=== PATIENT | male | born 1965 | race Caucasian/White ===

== ENCOUNTER 2017-07-26 05:42 | Day surgery (SDC) | payer MEDICARE, MEDICAID ==
[2017-07-25 11:50] VITALS: BMI 45.4
[2017-07-26 06:22] LABS: #Basophils 0.1 thou/uL (0.0-0.2); #Eosinphils 0.1 thou/uL (0.0-0.7); #Lymphocytes 3.1 thou/uL (1.20-3.40); #Monocytes 0.8 thou/uL (0.11-0.59); #Neutrophils 4.2 thou/uL (1.40-6.50); %Basophils 0.7 % (0.0-1.0); %Eosinophils 0.8 % (0.0-10.0); %Lymphocytes 37.5 % (21.0-51.0); Hemoglobin 16.4 g/dL (14.0-18.0); Mean Corpuscular HGB CONC 33.3 g/dL (32.0-36.0); Mean Corpuscular Hemoglobin 29.6 pg (27.0-31.0); Mean Corpuscular Volume 88.9 fl (80.0-94.0); Mean Platelet Volume 6.6 fL (7.4-10.4); Platelet Count 387 thou/uL (130-400); RBC Distribution Width 12.9 % (11.5-14.5); Red Blood Cell (RBC) Count 5.55 mill/uL (4.70-6.10); White Blood Cell (WBC) Count 8.1 thou/uL (4.8-10.8)
[2017-07-26] MEDS ORDERED: Bupivacaine 0.25% HCL 30 ML VIAL ONE (06:31)
[2017-07-26 06:36] LABS: ALT (SGPT) 32 U/L (8-55); AST (SGOT) 34 U/L (5-34); Albumin 4.5 g/dL (3.5-5.0); Alkaline Phosphatase 73 U/L (40-150); Anion Gap 12 mmol/L (10-20); BUN (Urea Nitrogen) 15 mg/dL (8.9-20.6); Bilirubin, Total 0.8 mg/dL (0.2-1.2); Calc. Creatinine Clearance 177 mL/min (70-130); Carbon Dioxide 29 mmol/L (22-29); Chloride 102 mmol/L (98-107); Estimated GFR-MDRD 82; Globulin 3.4 g/dL (2.4-3.5); Glucose 100 mg/dL (70-105); Potassium 4.2 mmol/L (3.5-5.1); Protein, Total 7.9 g/dL (6.0-8.3); Sodium 139 mmol/L (136-145)
[2017-07-26] MEDS ORDERED: Bupivacaine/Epinephrine 0.25% 30 ML VIAL ONE (06:41)
[2017-07-26] MEDS ORDERED: CEFAZOLIN/Water 2 GM/20 ML SYRINGE ONE (06:43)
[2017-07-26] MEDS ORDERED: Ketorolac Tromethamine 30 MG/ML VIAL ONE (06:43)
[2017-07-26] MEDS ORDERED: Fentanyl 250 MCG/5 ML VIAL ONE (07:05)
[2017-07-26] MEDS ORDERED: Ondansetron HCl/PF 4 MG/2 ML Vial ONE ×2 (08:13→12:52)
[2017-07-26] MEDS ORDERED: Fentanyl 100 MCG/2 ML VIAL ONE (08:38)
[2017-07-26] MEDS ORDERED: Promethazine HCl 25 MG/ML VIAL ONE (09:14)
--- NOTE | 2017-07-26 10:27 | OP ---
DATE OF PROCEDURE: 07/26/2017 PREOPERATIVE DIAGNOSES: Symptomatic cholelithiasis, morbid obesity. POSTOPERATIVE DIAGNOSES: Symptomatic cholelithiasis, morbid obesity. PROCEDURE: Laparoscopic cholecystectomy. SURGEON: Yariel Valles M.D. ANESTHESIA: General endotracheal. INDICATIONS: The patient is a 51-year-old morbidly obese white male. He has got a history of a righ t lung lobectomy. He presents at this time with symptoms referable to gallbladder and ultrasound pro cherelle cholelithiasis. I have recommended laparoscopic cholecystectomy. I insisted upon a preoperative weight loss due to my concern regarding the difficulty posed by significantly fatty liver. Accordin gly, the patient has put himself on a healthy diet and lost 17 pounds in the past 2 weeks. PROCEDURE IN DETAIL: Informed consent was obtained. The patient was taken to the operating room whe re general endotracheal anesthesia was obtained with the patient in the supine position. The abdomen was prepped with Betadine and draped in the usual sterile fashion. Quarter percent Marcaine with ep inephrine was infiltrated below the umbilicus and a 10 mm infraumbilical incision was created. A Yolanda ess needle was passed through this incision into the peritoneal cavity. A pneumoperitoneum was estab lished using carbon dioxide up to a pressure of 15 mmHg. Local anesthetic was infiltrated and three additional 5 mm right upper quadrant incisions were created. Through the mid incision, a 5 mm port w as passed into the peritoneal cavity. The camera was passed through this port and under direct visio n, an 11 port is passed through the infraumbilical incision. The camera was replaced through this port, and under dir ect vision, two additional 5 mm ports were passed through the incisions already created. The gallbladder was grasped and retracted in a cephalad direction. Minimal adhesions were bluntly st ripped away from the apex of the gallbladder, and the apex was retracted laterally and inferiorly. C areful dissection was carried out to the apex of the gallbladder to identify the cystic duct and cyst ic artery. These were each carefully dissected circumferentially. The duct was of normal caliber. Both the duct and the artery were divided between clips leaving two on the side to remain within the abdomen. The gallbladder was then dissected out of the gallbladder fossa using electrocautery and re moved through the infraumbilical port site. The fascia was closed with 0 Vicryl suture and a GraNee needle. The right upper quadrant was inspected and irrigated. All irrigant was aspirated. All port s and instruments were removed under direct vision. Pneumoperitoneum was carefully evacuated. Addit ional local anesthetic was infiltrated into each port site. The skin edges were approximated with 4- 0 Monocryl subcuticular sutures, and Dermabond was placed externally. There were no complications. The patient tolerated the procedure well and was taken to the Recovery Room in stable condition. FINDINGS: Due to the patient's obesity I made a supraumbilical rather than infraumbilical incision f or gallbladder extraction. The liver itself did not look particularly fatty. The surgery was perfor med without difficulty. There were no significant acute inflammatory changes to the gallbladder and the duct was without dilatation. Liver function tests were normal today. A cholangiogram was not ob tained. Blood loss was essentially none. The patient tolerated the procedure well and was taken to recovery room in stable condition.
[2017-07-26] MEDS ORDERED: HYDROcodone/Acetaminophen 5/325 mg Tablet ONE (11:13)
[2017-07-26] MEDS ORDERED: Succinylcholine Chloride 20 MG/ML 10 ml SYRINGE FS ONE (12:52)
[2017-07-26] MEDS ORDERED: Glycopyrrolate 0.2 MG/ML 5 ML SYRINGE ONE (12:52)
[2017-07-26] MEDS ORDERED: Metoprolol Tartrate 5 MG/5 ML VIAL ONE (12:52)
[2017-07-26] MEDS ORDERED: Dexamethasone 20 MG/5 ML VIAL ONE (12:52)
[2017-07-26] MEDS ORDERED: PROPOFOL 200 MG/20 ML VIAL ONE (12:52)
[2017-07-26] MEDS ORDERED: Lidocaine 1% PF 5 ML VIAL ONE (12:52)
--- NOTE | 2017-07-27 07:20 | EKG ---
Test Reason : PREOP Blood Pressure : / mmHG Vent. Rate : 096 BPM Atrial Rate : 115 BPM P-R Int : 000 ms QRS Dur : 110 ms QT Int : 348 ms P-R-T Axes : 000 024 051 degrees QTc Int : 439 ms Atrial fibrillation Abnormal ECG When compared with ECG of 02-MAR-2001 16:29, Atrial fibrillation has replaced Sinus rhythm Criteria for Septal infarct are no longer Present Confirmed by DR. Nicole WONG ([id number]) on 07/27/2017 7:20:29 AM Referred By: MARY JANE Confirmed By:DR. Nicole WONG
== END 2017-07-26 11:25 | disposition home or self-care (01) ==
LOC: SDC 05:42
PROVIDERS: ATTEND Specialist
PROC: 0FT44ZZ Resection of Gallbladder, Percutaneous Endoscopic Approach (ICD-10-PCS; principal; 2017-07-26)
DX: K80.10 Calculus of gallbladder with chronic cholecystitis without obstruction (principal); E66.01 Morbid (severe) obesity due to excess calories; E11.9 Type 2 diabetes mellitus without complications; I10 Essential (primary) hypertension; R56.9 Unspecified convulsions; Z68.42 Body mass index [BMI] 45.0-49.9, adult; Z79.82 Long term (current) use of aspirin; Z79.899 Other long term (current) drug therapy; Z88.8 Allergy status to other drugs, medicaments and biological substances
CPT/HCPCS: 36415; 80053; 85025; 88304; 93005; 93010; 96374; 96375; J0131; J1100; J1885; J2001; J2405; J2550; J2704; J3010; S0020

== ENCOUNTER 2017-09-24 08:44 | Emergency (ER) | payer MEDICARE, MEDICAID ==
[2017-09-24] MEDS ORDERED: Ondansetron ODT 4 MG TAB ONE (09:03)
[2017-09-24 09:39] LABS: Anion Gap 11 mmol/L (10-20); BUN (Urea Nitrogen) 11 mg/dL (8.9-20.6); Calc. Creatinine Clearance 0 mL/min (70-130); Calcium 9.1 mg/dL (7.8-10.44); Carbon Dioxide 29 mmol/L (22-29); Chloride 101 mmol/L (98-107); Estimated GFR-MDRD Greater than 90; Glucose 96 mg/dL (70-105); Potassium 3.8 mmol/L (3.5-5.1); Sodium 137 mmol/L (136-145)
--- NOTE | 2017-09-24 09:45 | RAD ---
RIGHT TIBIA AND FIBULA 4 VIEWS: Date: 09/24/17 HISTORY: Fall with injury to right lower extremity. FINDINGS: No evidence of fracture. IMPRESSION: No acute osseous abnormality identified. POS: ARUN
== END 2017-09-24 11:11 | disposition home or self-care (01) ==
LOC: ERS 08:44
DX: M79.661 Pain in right lower leg (principal); E78.5 Hyperlipidemia, unspecified; I10 Essential (primary) hypertension; E11.9 Type 2 diabetes mellitus without complications; J44.9 Chronic obstructive pulmonary disease, unspecified; Z79.899 Other long term (current) drug therapy; Z79.84 Long term (current) use of oral hypoglycemic drugs
CPT/HCPCS: 36415; 80048; 96374; J2270; Q0162

== ENCOUNTER 2017-10-15 09:48 | Outpatient (CLI) | payer OTHER | END 2017-10-15 09:49 | disposition home or self-care (01) | LOC: DTY/OP 09:48 | PROVIDERS: ATTEND Specialist | DX: Z01.818 Encounter for other preprocedural examination (principal); E66.01 Morbid (severe) obesity due to excess calories | CPT/HCPCS: 97802 ==

== ENCOUNTER 2017-12-02 21:21 | Observation (INO) | payer MEDICARE, MEDICAID ==
[2017-12-02] MEDS ORDERED: Ketorolac Tromethamine 30 MG/ML VIAL ONE (21:42)
[2017-12-02] MEDS ORDERED: Nitroglycerin 2% Ointment 1 INCH/1 GM Packet ONE (21:46)
[2017-12-02 22:38] LABS: CKMB 1.9 ng/mL (0-6.6); Troponin I Less than 0.010 ng/mL (< 0.028)
[2017-12-02] MEDS ORDERED: Morphine ER 30 MG TAB PO PRN (22:57)
[2017-12-02] MEDS ORDERED: Furosemide 40 MG TAB PO PRN (22:57)
[2017-12-02] MEDS ORDERED: Ondansetron ODT 4 MG TAB PO PRN (23:00)
[2017-12-02] MEDS ORDERED: Acetaminophen 325 MG TAB PO PRN (23:00)
[2017-12-02] MEDS ORDERED: Bisacodyl 5 MG TAB PO PRN (23:00)
[2017-12-02] MEDS ORDERED: Fleet Enema 133 ML BOT PR PRN (23:00)
--- NOTE | 2017-12-03 00:11 | HP ---
CHIEF COMPLAINT: Chest pain. HISTORIAN: The patient is the historian. HISTORY OF PRESENT ILLNESS: The patient is a 52-year-old white male with past medical history of seizures, COPD, right pneumonectomy, hypertension, chronic atrial fibrillation, presented with chest pain which started at 2:00 p.m. the day of admission. Per the patient, he was watching a [employer] football game and the kids in the house were very loud and that things were very chaotic and he started having symptoms of chest pain which is located at the right upper chest. Per the patient, he has had a right pneumonectomy therefore his heart is shifted to the right, so he felt like there was a little bit of atrial fibrillation and no chest pain, but he was very concerned, so he wanted to go to the emergency room to be examined just to make sure that everything is okay. The patient described the chest pain as 7/10. Chest pain is localized right upper chest. Nothing seemed to be the chest pain better. Chest pain lasted for almost 5 hours. Currently, the patient states the chest pain is better after receiving pain medications. REVIEW OF SYSTEMS: Positive for chest pain, heart palpitation, otherwise as documented in the HPI. All other systems were reviewed and are negative. FAMILY HISTORY: Dad had heart attacks. The patient states that mom a year ago. PAST MEDICAL HISTORY: Refer to [facility]. PAST SURGICAL HISTORY: The patient had a right elbow surgery in 09/2012. The patient had a right pneumonectomy due to lung cancer. The patient has appendectomy and back surgery. PSYCHIATRIC HISTORY: The patient does not have any history. SOCIAL HISTORY: The patient drinks occasionally. The patient denies any illicit drug use. The patient stated that he is a former smoker and he quit when he was 34 years old. ALLERGIES: The patient is allergic to LATEX and is unconfirmed. CURRENT MEDICATIONS: Medications were obtained from patient's son. The patient takes flecainide 50 mg, diltiazem 180 mg, omeprazole 40 mg, Eliquis 5 mg , furosemide 40 mg, enalapril 5 mg, hydrochlorothiazide 25 mg, lovastatin 10 mg. PHYSICAL EXAMINATION: VITAL SIGNS: Blood pressure is 128/87, pulse 117, respiratory rate of 20, temperature is 97.9. The patient's pain at this time is 4/10. The patient is 98 on room air. GENERAL: The patient appears relaxed, lying in bed comfortably, does not appear to be in any distress. The patient is speaking in full sentences. HEENT: Pupils are equally round and reactive to light. Extraocular motors are intact. There is no scleral icterus. Trachea is midline. Mucous membranes are moist. NECK: No JVD, supple. RESPIRATORY: The patient did not have any lung sounds at the right lung; however, the patient do have good air intake. No wheezing, no rales, no rhonchi is appreciated in the left lung. CARDIOVASCULAR: The patient has a reproducible chest pain at the right upper chest. The patient's heart rate is irregularly irregular and tachycardic. ABDOMEN: Nondistended, positive bowel sounds in all quadrants. No palpable masses appreciated. No tenderness. The patient does not have any ecchymosis noted. BACK: The patient did have a scar located at the right lung, upper back. EXTREMITIES: Upper extremities and lower extremities: 5/5 upper extremity strength, 5/5 lower extremity strength. Good pulses bilaterally at the upper and lower extremities. NEUROLOGIC: Cranial nerves II-XII grossly intact. No focal neurologic deficits noted. SKIN: Warm, dry, and intact. The patient does have a scar located in the right upper back. PSYCHIATRIC: Normal affect, alert and oriented x3. Chest x-ray showed right lung atelectasis is unchanged. Pulmonary vasculature is now somewhat engorged. Other findings are stable. LABORATORY DATA: The patient's troponins is less than 0.010. CK-MB is 1.9. WBC 9.5, hemoglobin 15.1, hematocrit is 45%, platelets 348. Electrolytes: Sodium 137, potassium 3.7, chloride 103, carbon dioxide 25, anion gap of 13, BUN 11, creatinine 0.83, glucose 138. Lactic acid 1.1. ASSESSMENT AND PLAN: 1. This is a 52-year-old male being admitted for chest pain, rule out acute coronary syndrome. The patient's chest pain is atypical in nature. Currently, patient has received aspirin, nitroglycerin, and morphine. The patient is currently feeling better. We will continue to monitor the patient closely. We will get the rest of troponins. We will get overseamer and we will follow up with overseamer's recommendation regarding possible stress test. The patient stated that he recently actually had an echo done and he has been worked up extensively because the patient is planning to have bariatric surgery. The patient also stated that he is being scheduled to have ablation of his atrial fibrillation. At this time, we will just get Cardiology and we are basically going to continue patient on home medication of diltiazem to slow the rate. If patient rate goes above 110, we will then consider possibly doing diltiazem. 2. Atrial fibrillation with rapid ventricular response. The patient's current heart rate is in the 90s at bedside. We will continue the patient on diltiazem p.o. We will follow up with patient's heart rate. We will monitor closely. 3. Chronic obstructive pulmonary disease. Currently, the patient is not wheezing. The patient does not have any symptoms of chronic obstructive pulmonary disease exacerbation, so we will continue the patient on his home medication. 4. History of seizures, currently stable. We will monitor. 5. Hypertension. The patient's blood pressure is in the 150s. We will continue to watch patient's blood pressure. We will continue to watch patient closely. 6. Deep venous thrombosis and gastrointestinal prophylaxis. We will continue the patient on his home dose of Eliquis and gastrointestinal prophylaxis. We will give patient Pepcid. MTDD
[2017-12-03 00:34] VITALS: BMI 44.6
[2017-12-03 00:39] LABS: #Basophils 0.1 thou/uL (0.0-0.2); #Eosinphils 0.1 thou/uL (0.0-0.7); #Lymphocytes 4.1 thou/uL (1.20-3.40); #Monocytes 0.7 thou/uL (0.11-0.59); #Neutrophils 4.3 thou/uL (1.40-6.50); %Eosinophils 0.8 % (0.0-10.0); %Lymphocytes 44.4 % (21.0-51.0); %Monocytes 7.9 % (0.0-10.0); %Neutrophils 45.9 % (42.0-75.0); Hemoglobin 14.5 g/dL (14.0-18.0); Mean Corpuscular HGB CONC 33.6 g/dL (32.0-36.0); Mean Corpuscular Hemoglobin 29.7 pg (27.0-31.0); Mean Corpuscular Volume 88.2 fL (78.0-98.0); Mean Platelet Volume 6.3 fL (7.4-10.4); Platelet Count 298 thou/uL (130-400); RBC Distribution Width 12.8 % (11.5-14.5); White Blood Cell (WBC) Count 9.3 thou/uL (4.8-10.8)
[2017-12-03 01:06] LABS: Troponin I 0.019 ng/mL (< 0.028)
[2017-12-03 01:08] LABS: Anion Gap 11 mmol/L (10-20); BUN (Urea Nitrogen) 10 mg/dL (8.9-20.6); Calc. Creatinine Clearance 213 mL/min (70-130); Calcium 9.2 mg/dL (7.8-10.44); Carbon Dioxide 26 mmol/L (22-29); Chloride 104 mmol/L (98-107); Estimated GFR-MDRD Greater than 90; Glucose 93 mg/dL (70-105); Potassium 4.1 mmol/L (3.5-5.1); Sodium 137 mmol/L (136-145)
[2017-12-03] MEDS ORDERED: Insulin Regular 300 UNITS/3 ML VIAL SC PRN (01:43)
[2017-12-03] MEDS ORDERED: Dextrose 50% Abboject 50 ML SYRINGE SLOW IVP PRN (01:43)
[2017-12-03] MEDS ORDERED: HumaLOG 300 UNITS/3 ML VIAL SC PRN (01:43)
[2017-12-03] MEDS ORDERED: Dextrose 5% in Water 1,000 ML IV PRN (01:43)
[2017-12-03 05:33] LABS: Troponin I Less than 0.010 ng/mL (< 0.028)
[2017-12-03 08:00] VITALS: BP 125/79; TEMP 97.2
[2017-12-03] MEDS ORDERED: Hydrochlorothiazide 25 MG TAB PO SCH ×2 (09:00)
[2017-12-03] MEDS ORDERED: Apixaban 5 MG TAB PO SCH (09:00)
[2017-12-03] MEDS ORDERED: Flecainide 50 MG TAB PO SCH (09:00)
[2017-12-03] MEDS ORDERED: Aspirin 325 MG TAB PO SCH (09:00)
[2017-12-03] MEDS ORDERED: Rosuvastatin 10 MG TAB PO SCH (09:00)
--- NOTE | 2017-12-03 15:25 | DIS ---
SDATE OF ADMISSION: 12/02/2017 DATE OF DISCHARGE: 12/03/2017 PRIMARY CARE PHYSICIAN: [facility] call admission. DISCHARGE DISPOSITION: Home. PRIMARY DISCHARGE DIAGNOSIS: Chest pain, ruled out acute coronary syndrome. SECONDARY DISCHARGE DIAGNOSES: Seizure disorder; morbid obesity with BMI 44; hypertension; history of lung cancer; history of right pneumonectomy; dyslipidemia; diabetes type 2; chronic atrial fibrillation, chronic anticoagulation; obstructive sleep apnea, on CPAP. PRIMARY PROCEDURE/OPERATION: None. RADIOLOGICAL INVESTIGATION: None. SIGNIFICANT LABORATORY DATA: CBC: WBC 9.3, hemoglobin 14.5, platelets 298. Sodium 137, creatinine 0.78. Electrolytes normal. Cardiac enzymes negative x3. RADIOLOGIC INVESTIGATION: Chest x-ray was normal. DISCHARGE MEDICATIONS: The patient will continue all his previous medications. Eliquis 5 mg p.o. b.i.d., Cardizem-CD 180 mg p.o. daily, enalapril 5 mg p.o. daily, flecainide 50 mg p.o. b.i.d., Lasix 40 mg p.o. daily p.r.n., hydrochlorothiazide 25 mg p.o. daily, omeprazole 40 mg p.o. daily, Crestor 10 mg p.o. daily. CONTRAINDICATIONS: None. CODE STATUS: FULL CODE. INPATIENT CONSULTANTS: None. ALLERGIES: No known drug allergy. DISCHARGE PLAN: Post hospital, the patient will make followup appointment with primary care physician as well as primary shoe stock associate in [place]. HOSPITAL COURSE: This is a 52-year-old male, who was admitted by Dr. Arie Mariano. Please see his H and P for further details. The patient was initially evaluated at [facility] where he went for chest pain. His workup at [facility] was unremarkable. His EKG showed atrial fibrillation, which was chronic for patient. The patient was transferred to our hospital for rule out ACS. Patient had negative cardiac enzymes x3. He did not have any further chest pain. When we examined and took his history,his chest pain was consistent with musculoskeletal. His cardiac enzymes negative. Patient was not interested in getting cardiology consultation as well as he was not interested in going for stress test, rather he wanted to go home, and per his request, we discharged him home. He has already followup appointment with his own shoe stock associate and primary care physician in [place]. The patient is seen and examined at bedside today. All review of system reviewed with him and negative. His physical examination is completely normal. BRANDON
--- NOTE | 2017-12-15 13:16 | EKG ---
Test Reason : Blood Pressure : / mmHG Vent. Rate : 079 BPM Atrial Rate : 138 BPM P-R Int : 000 ms QRS Dur : 110 ms QT Int : 366 ms P-R-T Axes : 000 019 043 degrees QTc Int : 419 ms Atrial fibrillation Abnormal ECG Confirmed by ERVIN FLORES ([id number]), purchasing expeditor KAREN GARCIA ([id number]) on 12/15/2017 1:15:40 PM Referred By: Confirmed By:ERVIN FLORES
== END 2017-12-03 12:08 | disposition home or self-care (01) ==
LOC: ERS 21:21 → 2SW 22:24
PROVIDERS: ADMIT Internal Medicine; ATTEND Internal Medicine
DX: R07.2 Precordial pain (principal); J44.9 Chronic obstructive pulmonary disease, unspecified; I48.2 Chronic atrial fibrillation; E66.01 Morbid (severe) obesity due to excess calories; E11.9 Type 2 diabetes mellitus without complications; G47.33 Obstructive sleep apnea (adult) (pediatric); Z91.040 Latex allergy status; Z79.01 Long term (current) use of anticoagulants; Z79.899 Other long term (current) drug therapy; Z68.41 Body mass index [BMI] 40.0-44.9, adult
CPT/HCPCS: 80048; 82553; 82962; 84484 ×3; 85025; 93005; 94660; 96374; 99285; G0378 ×2; 36415; 36416; J1885

== ENCOUNTER 2017-12-14 10:30 | Inpatient (IN) | payer MEDICARE, MEDICAID ==
[2017-12-14 10:48] VITALS: BMI 44.2
[2017-12-20] MEDS ORDERED: cefOXitin 2 GM VIAL ONE (06:18)
[2017-12-20] MEDS ORDERED: Heparin 5,000 UNITS/ML VIAL ONE (06:19)
[2017-12-20] MEDS ORDERED: Scopolamine 1.5 mg/72 hour Patch ONE (06:19)
[2017-12-20] MEDS ORDERED: Sodium Chloride 0.9% 100 ML ONE (06:19)
[2017-12-20] MEDS ORDERED: Ketorolac Tromethamine 30 MG/ML VIAL ONE (06:19)
[2017-12-20] MEDS ORDERED: Fentanyl 250 MCG/5 ML VIAL ONE (06:27)
[2017-12-20] MEDS ORDERED: Midazolam HCl 2 mg/2 ml Vial ONE (06:27)
[2017-12-20] MEDS ORDERED: Bupivacaine/Epinephrine 0.25% 30 ML VIAL ONE ×2 (06:28→06:52)
[2017-12-20] MEDS ORDERED: Lidocaine 2% Jelly 5 ML TUBE ONE (06:28)
[2017-12-20] MEDS ORDERED: Promethazine HCl 25 MG/ML VIAL IM PRN ×2 (09:20→13:16)
[2017-12-20] MEDS ORDERED: Ondansetron HCl/PF 4 MG/2 ML Vial IVP PRN ×2 (09:20→13:16)
[2017-12-20] MEDS ORDERED: Promethazine HCl 25 MG/ML VIAL SLOW IVP PRN (09:20)
[2017-12-20] MEDS ORDERED: Fentanyl 100 MCG/2 ML VIAL ONE ×3 (09:53→11:17)
--- NOTE | 2017-12-20 11:39 | OP ---
DATE OF PROCEDURE: 12/20/2017 PREOPERATIVE DIAGNOSIS: Morbid obesity. POSTOPERATIVE DIAGNOSIS: Morbid obesity. PROCEDURE PERFORMED: Laparoscopic vertical sleeve gastrectomy using the ViSiGi device.. SURGEON: Yariel Valles M.D. ANESTHESIA: General endotracheal. INDICATIONS: The patient is a 52-year-old morbidly obese white male. He weighs approximately 285 po unds at the time of surgery. He has lost some weight preoperatively. He was taken to the operating room at this time for sleeve gastrectomy, having completed preoperative education and evaluation. DESCRIPTION OF OPERATION: Informed consent was obtained. The patient was taken to the operating shahla m where general endotracheal anesthesia obtained with the patient in supine position. Abdomen was pr epped with ChloraPrep and draped in sterile fashion. Local anesthetic was infiltrated and 5 mm supra umbilical incision was created through which Veress needle was passed to the peritoneal cavity and pn eumoperitoneum established using carbon dioxide up to a pressure of 15 mmHg. A 5 mm trocar port was passed through this same incision. Laparoscopic camera was passed through this port. Under direct v ision, 4 additional ports were placed including bilateral 5 mm subcostal ports, a 12 mm right paramed zack port and a 15 mm left paramedian port. A 5 mm epigastric incision was created through which Nathansen retractor was passed into the abdomina l cavity and used to retract the left lobe of the liver. The patient was placed into reverse [place] en[place] position. The ViSiGi device was advanced within the stomach and used to decompress this. The pylorus was ident ified and beginning 4 cm proximal to the pylorus, the omentum and vascular tissue along the greater c urvature was divided using the LigaSure in an ascending fashion up to the angle of His. All posterio r adhesions were mobilized. The short gastric vessels were carefully divided and then hemostasis was maintained using the LigaSure. Once this was completely mobilized, the ViSiGi was carefully positio giselle at the level of the pylorus and placed to suction, which was clearly defining the lesser curvatur e of the stomach. The gastrectomy was then performed using a series of fires of the [place] stapler using a green load followed by a gold load and a series of blue loads until completion of the gastrectomy. The ViSiGi a long the lesser curvature was used as a size 36 bougie to guide in the gastric division. Care was ta kumar to avoid narrowing the incisura or the gastroesophageal junction. The integrity of the staple line was then assessed by insufflating gas through the ViSiGi while irrig ating along the staple line. There was no evidence of an air leak. There was no evidence of bleedin g along the staple line. The resected stomach was then removed through the 15 mm port and the fascia was closed with 0 Vicryl suture using a GraNee needle. I then closed the 12 mm port also using the GraNee needle and 0 Vicryl suture. The Nathansen retractor was removed. All ports and instruments were removed under direct v ision. All irrigant was aspirated. Pneumoperitoneum was carefully evacuated. Quarter percent [place] ine with epinephrine was infiltrated into each port site. Skin edges approximated with 4-0 Monocryl subcuticular suture. Dermabond was placed externally. There were no complications. The patient marichuy erated the procedure well and was taken to recovery room in stable condition. FINDINGS: The patient did not have any evidence of a fatty liver. He did have copious fat along the greater curvature. The operation was performed uneventfully without any significant blood loss with no complications or injuries. Clips were placed along the staple line to ensure appropriate hemosta sis. The patient was in stable condition and taken to recovery room.
[2017-12-20] MEDS ORDERED: Ondansetron HCl/PF 4 MG/2 ML Vial ONE (13:01)
[2017-12-20] MEDS ORDERED: Glycopyrrolate 0.2 MG/ML 5 ML SYRINGE ONE (13:01)
[2017-12-20] MEDS ORDERED: Succinylcholine Chloride 20 MG/ML 10 ml SYRINGE FS ONE (13:01)
[2017-12-20] MEDS ORDERED: PROPOFOL 200 MG/20 ML VIAL ONE (13:01)
[2017-12-20] MEDS ORDERED: Lidocaine 1% PF 5 ML VIAL ONE (13:01)
[2017-12-20] MEDS ORDERED: Metoprolol Tartrate 5 MG/5 ML VIAL ONE (13:01)
[2017-12-20] MEDS ORDERED: Dexamethasone 20 MG/5 ML VIAL ONE (13:01)
[2017-12-20] MEDS ORDERED: diphenhydrAMINE 50 MG/ML VIAL IVP PRN (13:16)
[2017-12-20] MEDS ORDERED: Dextrose 5% in Water 1,000 ML IV PRN (13:16)
[2017-12-20] MEDS ORDERED: Morphine 4 MG/ML VIAL SLOW IVP PRN (13:16)
[2017-12-20] MEDS ORDERED: Dextrose 50% Abboject 50 ML SYRINGE SLOW IVP PRN (13:16)
[2017-12-20] MEDS ORDERED: Insulin Regular 300 UNITS/3 ML VIAL SC PRN (13:16)
[2017-12-20] MEDS ORDERED: Morphine 2 MG/ML SYRINGE SLOW IVP PRN (13:16)
[2017-12-20] MEDS ORDERED: hydrALAZINE 20 MG/ML VIAL SLOW IVP PRN (13:16)
[2017-12-20] MEDS: 1/2 NS w/KCL 20 mEq 1,000 ML IV SCH ×2 (13:55→21:33)
[2017-12-20] MEDS: Ketorolac Tromethamine 30 MG/ML VIAL IVP SCH ×2 (17:55→23:51)
[2017-12-20] MEDS: Acetaminophen 1,000 MG in Premix Bag 1 BAG IVPB SCH ×2 (18:25→23:51)
[2017-12-20] MEDS ORDERED: Diltiazem 125 MG in Sodium Chloride 0.9% 100 ML IVPB SCH (19:00)
--- NOTE | 2017-12-20 19:02 | PDOC.PN ---
- Subjective Encounter Start Date: 12/20/17 Encounter Start Time: 18:30 Subjective: no sob or palp or chest pain -: had some ice chips post surgery -: no pain, moving all extremities - Objective MAR Reviewed: Yes Vital Signs & Weight: Vital Signs (12 hours) Pulse Ox 12/20/17 13:16 97 Weight Weight 291 lb Additional Labs: Accuchecks 12/20/17 18:12 POC Glucose 128 H Phys Exam - Physical Examination HEENT: PERRLA, sclera anicteric Neck: no JVD, supple Respiratory: no wheezing, no rales Cardiovascular: no significant murmur, irregular Gastrointestinal: soft, no distention Musculoskeletal: no edema, pulses present Neurological: non-focal, moves all 4 limbs Psychiatric: normal affect, A&O x 3 Dx/Plan (1) Afib Code(s): I48.91 - UNSPECIFIED ATRIAL FIBRILLATION Status: Acute Qualifiers: Atrial fibrillation type: chronic Qualified Code(s): I48.2 - Chronic atrial fibrillation Comment: on flecainide and cardizem cd (2) s/p gastric sleeve surgery Status: Acute Comment: 12/20/2017 (3) DM type 2 (diabetes mellitus, type 2) Status: Chronic Qualifiers: Diabetes mellitus fci insulin use: without disbursing agent use Diabetes mellitus complication status: with unspecified complications Qualified Code(s) : E11.8 - Type 2 diabetes mellitus with unspecified complications (4) Dyslipidemia Code(s): E78.5 - HYPERLIPIDEMIA, UNSPECIFIED Status: Chronic (5) H/O pneumonectomy Code(s): Z98.890 - OTHER SPECIFIED POSTPROCEDURAL STATES; Z90.2 - ACQUIRED ABSENCE OF LUNG [PART OF] Status: Chronic Comment: right side (6) Hypertension Code(s): I10 - ESSENTIAL (PRIMARY) HYPERTENSION Status: Chronic Qualifiers: Hypertension type: essential hypertension Qualified Code(s): I10 - Essential (primary) hypertension (7) Morbid obesity with BMI of 40.0-44.9, adult Code(s): E66.01 - MORBID (SEVERE) OBESITY DUE TO EXCESS CALORIES; Z68.41 - BODY MASS INDEX (BMI) 40.0-44.9, ADULT Status: Chronic - Plan start back on flecainide, cardizem CD 120mg bid plus drip 5mg/hr -: tx to tele, cardio consult -: Had EP studies/ablation planned for 01/14/2018 in [place] -: DC cardizem if HR dips to 50/min -: to wear cpap at home settings ( here with cpap) * . Is starting bariatric liq diet tonight. Anticoagulation when cleared by surgery He has had all his cardiac w/u at [place] (ef was normal, edv 118ml..tech difficult study due to pneumonectomy 10/17/17), LDL 85, normal tsh. No prior stress test done likely due to his weight? Will f/u evening labs. Review of Systems - Medications/Allergies Allergies/Adverse Reactions: Allergies Allergy/AdvReac Type Severity Reaction Status Date / Time divalproex sodium Allergy blurry Verified 12/14/17 10:48 [From Depakote] vision Medications: Current Medications Hydrocodone Bitart/Acetaminophen (Hydrocodone-Apap 7.5-325/15) 15 ml PO Q4H PRN PRN Reason: Moderate Pain (4-6) Dextrose/Water (Dextrose 50%) 25 gm SLOW IVP PRN PRN PRN Reason: Hypoglycemia Diltiazem HCl (Cardizem Cd) 120 mg PO BID NICHOLE Diphenhydramine HCl (Benadryl) 25 mg IVP Q6H PRN PRN Reason: Itching & Insomnia Enoxaparin Sodium (Lovenox) 40 mg SC 2100 NICHOLE Flecainide Acetate (Tambocor) 50 mg PO BID NICHOLE Glucagon (Glucagon) 1 mg IM PRN PRN PRN Reason: Hypoglycemia Hydralazine HCl (Apresoline) 10 mg SLOW IVP Q4H PRN PRN Reason: SBP > 170 or DBP > 100 Potassium Chloride/Sodium Chloride (1/2 Ns W/Kcl 20 Meq) 1,000 mls @ 125 mls/ hr IV .Q8H NCIHOLE Last Admin: 12/20/17 13:55 Dose: Not Given Acetaminophen 1,000 mg/ Device 100 mls @ 400 mls/hr IVPB Q6HR NICHOLE Stop: 12/21/17 12:14 Dextrose/Water (D5w) 1,000 mls @ 0 mls/hr IV .Q0M PRN PRN Reason: Hypoglycemia Diltiazem HCl 125 mg/ Sodium (Chloride) 125 mls @ 5 mls/hr IVPB INF NICHOLE; Protocol Insulin Human Regular (Humulin R) 0 units SC .MODERATE SLIDING SC PRN PRN Reason: Moderate Correctional Scale Ketorolac Tromethamine (Toradol) 30 mg IVP Q6HR NICHOLE Stop: 12/25/17 18:01 Last Admin: 12/20/17 17:55 Dose: 30 mg Morphine Sulfate (Morphine) 2 mg SLOW IVP Q2H PRN PRN Reason: Moderate Pain (4-6), if NPO Morphine Sulfate (Morphine) 4 mg SLOW IVP Q2H PRN PRN Reason: Severe Pain (7-10) Last Admin: 12/20/17 13:50 Dose: 4 mg Ondansetron HCl (Zofran) 4 mg IVP Q8H PRN PRN Reason: Nausea/Vomiting Last Admin: 12/20/17 13:50 Dose: 4 mg Pantoprazole Sodium (Protonix) 40 mg IVP DAILY [facility] Promethazine HCl (Phenergan) 12.5 mg IM Q2H PRN PRN Reason: Nausea/Vomiting Last Admin: 12/20/17 14:08 Dose: 12.5 mg Sodium Chloride (Flush - Normal Saline) 10 ml IVF PRN PRN PRN Reason: Saline Flush
[2017-12-20 19:21] LABS: #Lymphocytes 0.9 thou/uL (1.20-3.40); #Monocytes 0.2 thou/uL (0.11-0.59); #Neutrophils 9.6 thou/uL (1.40-6.50); %Eosinophils 0.3 % (0.0-10.0); %Lymphocytes 8.4 % (21.0-51.0); %Monocytes 1.6 % (0.0-10.0); %Neutrophils 89.7 % (42.0-75.0); Mean Corpuscular HGB CONC 33.6 g/dL (32.0-36.0); Mean Corpuscular Hemoglobin 29.8 pg (27.0-31.0); Mean Corpuscular Volume 88.7 fL (78.0-98.0); Mean Platelet Volume 6.7 fL (7.4-10.4); Platelet Count 332 thou/uL (130-400); RBC Distribution Width 12.6 % (11.5-14.5); Red Blood Cell (RBC) Count 5.03 mill/uL (4.70-6.10); White Blood Cell (WBC) Count 10.7 thou/uL (4.8-10.8)
[2017-12-20 19:31] LABS: Anion Gap 13 mmol/L (10-20); BUN (Urea Nitrogen) 12 mg/dL (8.9-20.6); Calc. Creatinine Clearance 194 mL/min (70-130); Carbon Dioxide 24 mmol/L (22-29); Chloride 102 mmol/L (98-107); Estimated GFR-MDRD Greater than 90; Glucose 126 mg/dL (70-105); Potassium 4.4 mmol/L (3.5-5.1); Sodium 135 mmol/L (136-145)
[2017-12-20] MEDS ORDERED: Enoxaparin Sodium 40 MG/0.4 ML SYRINGE SC SCH (21:00)
[2017-12-20] MEDS: Flecainide 50 MG TAB PO SCH (21:24)
[2017-12-20] MEDS: Hydrocodone-Acetamin 15 ML UDCUP PO PRN (21:24)
[2017-12-21 06:02] LABS: #Lymphocytes 1.6 thou/uL (1.20-3.40); #Monocytes 0.8 thou/uL (0.11-0.59); #Neutrophils 8.7 thou/uL (1.40-6.50); %Basophils 0.4 % (0.0-1.0); %Eosinophils 0.1 % (0.0-10.0); %Lymphocytes 14.6 % (21.0-51.0); %Monocytes 7.1 % (0.0-10.0); %Neutrophils 77.8 % (42.0-75.0); Hemoglobin 14.1 g/dL (14.0-18.0); Mean Corpuscular HGB CONC 33.1 g/dL (32.0-36.0); Mean Corpuscular Hemoglobin 29.7 pg (27.0-31.0); Mean Corpuscular Volume 89.7 fL (78.0-98.0); Mean Platelet Volume 6.6 fL (7.4-10.4); Platelet Count 312 thou/uL (130-400); RBC Distribution Width 12.9 % (11.5-14.5); Red Blood Cell (RBC) Count 4.75 mill/uL (4.70-6.10); White Blood Cell (WBC) Count 11.2 thou/uL (4.8-10.8)
[2017-12-21] MEDS: Ketorolac Tromethamine 30 MG/ML VIAL IVP SCH ×2 (06:06→12:33)
[2017-12-21] MEDS: 1/2 NS w/KCL 20 mEq 1,000 ML IV SCH (06:08)
[2017-12-21] MEDS: Acetaminophen 1,000 MG in Premix Bag 1 BAG IVPB SCH ×2 (06:08→12:33)
[2017-12-21 06:31] LABS: Anion Gap 12 mmol/L (10-20); BUN (Urea Nitrogen) 13 mg/dL (8.9-20.6); Calc. Creatinine Clearance 201 mL/min (70-130); Calcium 9.2 mg/dL (7.8-10.44); Carbon Dioxide 25 mmol/L (22-29); Chloride 103 mmol/L (98-107); Estimated GFR-MDRD Greater than 90; Glucose 98 mg/dL (70-105); Potassium 4.4 mmol/L (3.5-5.1); Sodium 136 mmol/L (136-145)
[2017-12-21] MEDS ORDERED: Pantoprazole 40 MG VIAL IVP SCH (09:00)
[2017-12-21] MEDS: Hydrocodone-Acetamin 15 ML UDCUP PO PRN ×2 (09:07→15:51)
[2017-12-21] MEDS: Flecainide 50 MG TAB PO SCH (09:10)
--- NOTE | 2017-12-21 10:26 | PRG ---
DATE OF SERVICE: 12/21/2017 HISTORY OF PRESENT ILLNESS: Mr. Crowell is postoperative day #1 from laparoscopic sleeve gastrectomy. His surgery was uneventful and he was very stable during his surgery. In the evening, after he ret urned to the surgical floor, he developed tachycardia in the 130s. An EKG revealed atrial fibrillati on with rapid ventricular response. The patient had a history of paroxysmal atrial fibrillation. Consideration is being given by his car diologist to some ablation-type procedure, but this has not been done. He is maintained currently on flecainide, Cardizem, and Eliquis in regard to this. He had taken all of these medications yesterda y morning (except for his Eliquis, which was held for a couple of days). Sound was consulted urgently and Dr. Villa graciously presented and quickly assessed the proble m, transferred the patient to telemetry, and initiated a Cardizem drip. The patient's heart rate dieudonne pped down into the 80s. The patient today is stable hemodynamically. He tells me he feels well. He has some discomfort in h is abdomen when he sits up and lays back down, but otherwise has minimal discomfort. He has been marichuy erating his clear liquids uneventfully. He has had no vomiting. He did have some nausea yesterday, but this is almost certainly anesthesia related. PHYSICAL EXAMINATION: VITAL SIGNS: Today, he is afebrile, pulse is 88, blood pressure is within normal limits. LUNGS: His left lung is clear to auscultation. ABDOMEN: Soft. Incisions are healing nicely. Normoactive bowel sounds are present. EXTREMITIES: Unremarkable. LABORATORY STUDIES: CBC and basic metabolic panel obtained yesterday, during his tachycardia, were e ssentially normal and they have remained normal today. ASSESSMENT AND PLAN: The patient is doing well following his sleeve gastrectomy. His atrial fibrill ation seems to be under appropriate control, but he is on a Cardizem drip. I have already spoken to his hospitalist physician, who plans to discontinue his Cardizem drip today. If he remains stable af ter this, then he is probably stable for discharge home. He is certainly stable from a surgical debbie dpoint. I have cleared him for discharge, and given him a prescription for hydrocodone elixir. It i s understood that the patient is on chronic narcotics and I have cautioned him about the dangers of c ombining these medications, but for now, I think he is better off taking the liquid narcotic for the next couple of days. He requires no other prescription medications. He may resume his usual home me dications except that I have discontinued his Lasix and hydrochlorothiazide to avoid problems with de hydration. I will see him back in my office in about 2 weeks for routine followup.
--- NOTE | 2017-12-21 13:21 | PDOC.PN ---
- Subjective Encounter Start Date: 12/21/17 Encounter Start Time: 10:30 Subjective: no sob or palp or chest pain -: feels better, is sitting up on bed, at bedside -: tolerating liq diet, no nausea - Objective MAR Reviewed: Yes Vital Signs & Weight: Vital Signs (12 hours) Temp Pulse Resp BP BP 12/21/17 12:30 92 18 119/78 12/21/17 09:09 88 114/73 12/21/17 07:20 97.3 F L 88 16 112/80 Weight Weight 291 lb I&O: 12/20/17 12/21/17 12/22/17 06:59 06:59 06:59 Intake Total 825 Balance 825 Result Diagrams: 12/21/17 05:29 12/21/17 05:29 Additional Labs: Accuchecks 12/21/17 12/21/17 12/21/17 11:53 06:07 01:15 POC Glucose 90 96 98 12/20/17 18:12 POC Glucose 128 H Phys Exam - Physical Examination HEENT: PERRLA, moist MMs Neck: no JVD, supple Respiratory: no wheezing, no rales Cardiovascular: no significant murmur, irregular Gastrointestinal: soft, no distention, positive bowel sounds Musculoskeletal: no edema, pulses present Neurological: non-focal, moves all 4 limbs Psychiatric: normal affect, A&O x 3 Dx/Plan (1) Afib Code(s): I48.91 - UNSPECIFIED ATRIAL FIBRILLATION Status: Acute Qualifiers: Atrial fibrillation type: chronic Qualified Code(s): I48.2 - Chronic atrial fibrillation Comment: on flecainide and cardizem cd (2) s/p gastric sleeve surgery Status: Acute Comment: 12/20/2017 (3) DM type 2 (diabetes mellitus, type 2) Status: Chronic Qualifiers: Diabetes mellitus exterminator termite insulin use: without exterminator termite use Diabetes mellitus complication status: with unspecified complications Qualified Code(s) : E11.8 - Type 2 diabetes mellitus with unspecified complications (4) Dyslipidemia Code(s): E78.5 - HYPERLIPIDEMIA, UNSPECIFIED Status: Chronic (5) H/O pneumonectomy Code(s): Z98.890 - OTHER SPECIFIED POSTPROCEDURAL STATES; Z90.2 - ACQUIRED ABSENCE OF LUNG [PART OF] Status: Chronic Comment: right side (6) Hypertension Code(s): I10 - ESSENTIAL (PRIMARY) HYPERTENSION Status: Chronic Qualifiers: Hypertension type: essential hypertension Qualified Code(s): I10 - Essential (primary) hypertension (7) Morbid obesity with BMI of 40.0-44.9, adult Code(s): E66.01 - MORBID (SEVERE) OBESITY DUE TO EXCESS CALORIES; Z68.41 - BODY MASS INDEX (BMI) 40.0-44.9, ADULT Status: Chronic - Plan is off cardizem drip now, to continue flecainide and cardizem cd 180 daily -: is evaluating him shortly to see if he needs addition of lopresso -: d/w , is aware of likely ablation/EPS on 01/14 in [place] -: hemostable, is likely going home as soon as evaluates him -: d/w , to start eliquis from am, no diuretics to avoid dehydration * . still in afib with HR between 60-90/min for the most part. Counselled patient to wear cpap whenever he sleeps to avoid hypoxic trigger for afib. Review of Systems - Medications/Allergies Allergies/Adverse Reactions: Allergies Allergy/AdvReac Type Severity Reaction Status Date / Time divalproex sodium Allergy blurry Verified 12/14/17 10:48 [From Depakote] vision Medications: Current Medications Hydrocodone Bitart/Acetaminophen (Hydrocodone-Apap 7.5-325/15) 15 ml PO Q4H PRN PRN Reason: Moderate Pain (4-6) Last Admin: 12/21/17 09:07 Dose: 15 ml Dextrose/Water (Dextrose 50%) 25 gm SLOW IVP PRN PRN PRN Reason: Hypoglycemia Diltiazem HCl (Cardizem Cd) 180 mg PO QAM [facility] Last Admin: 12/21/17 12:30 Dose: Not Given Diphenhydramine HCl (Benadryl) 25 mg IVP Q6H PRN PRN Reason: Itching & Insomnia Enoxaparin Sodium (Lovenox) 40 mg SC 2100 NICHOLE Last Admin: 12/20/17 21:21 Dose: 40 mg Flecainide Acetate (Tambocor) 50 mg PO BID [facility] Last Admin: 12/21/17 09:10 Dose: 50 mg Glucagon (Glucagon) 1 mg IM PRN PRN PRN Reason: Hypoglycemia Hydralazine HCl (Apresoline) 10 mg SLOW IVP Q4H PRN PRN Reason: SBP > 170 or DBP > 100 Dextrose/Water (D5w) 1,000 mls @ 0 mls/hr IV .Q0M PRN PRN Reason: Hypoglycemia Insulin Human Regular (Humulin R) 0 units SC .MODERATE SLIDING SC PRN PRN Reason: Moderate Correctional Scale Ketorolac Tromethamine (Toradol) 30 mg IVP Q6HR [facility] Stop: 12/25/17 18:01 Last Admin: 12/21/17 12:33 Dose: 30 mg Morphine Sulfate (Morphine) 2 mg SLOW IVP Q2H PRN PRN Reason: Moderate Pain (4-6), if NPO Morphine Sulfate (Morphine) 4 mg SLOW IVP Q2H PRN PRN Reason: Severe Pain (7-10) Last Admin: 12/20/17 13:50 Dose: 4 mg Ondansetron HCl (Zofran) 4 mg IVP Q8H PRN PRN Reason: Nausea/Vomiting Last Admin: 12/20/17 13:50 Dose: 4 mg Pantoprazole Sodium (Protonix) 40 mg PO DAILY [facility] Promethazine HCl (Phenergan) 12.5 mg IM Q2H PRN PRN Reason: Nausea/Vomiting Last Admin: 12/20/17 14:08 Dose: 12.5 mg Sodium Chloride (Flush - Normal Saline) 10 ml IVF PRN PRN PRN Reason: Saline Flush Last Admin: 12/21/17 09:06 Dose: 10 ml
--- NOTE | 2017-12-21 14:09 | CON ---
DATE OF CONSULTATION: 12/21/2017 REASON FOR CONSULTATION: Atrial fibrillation. HISTORY OF PRESENT ILLNESS: Mr. Crowell is a very pleasant 52-year-old white gentleman who comes to [facility] for scheduled laparoscopic band surgery. He has chronic atrial fibrillation and is plann ing on having an ablation on 01/19/2017. He came in yesterday held all his medications including Radha naheed for stroke prophylaxis, had a surgery successfully yesterday when he came out of OR. His heart rate was in 130s and atrial fibrillation. He has chronic atrial fibrillation, so he was started on a diltiazem drip this morning. This was stopped and his heart rate has remained all morning in 80s of f of any drips only restarting his home medications. He is scheduled to restart Eliquis tomorrow. Davey jaramillo feels well otherwise. He denies any chest pain, tightness, pressure, no shortness of breath, no li ghtheadedness, no syncope or presyncope. He normally feels RVR with palpitation, but he has not felt this. He did not feel this yesterday. PAST MEDICAL HISTORY: 1. Chronic atrial fibrillation. 2. History of chest pain with negative catheterization in the past. 3. Seizure disorder. 4. Chronic obstructive pulmonary disease. 5. Right pneumonectomy in the past. 6. Hypertension. PAST SURGICAL HISTORY: 1. Right pneumonectomy. 2. Right elbow surgery. 3. Appendectomy. 4. Back surgery. SOCIAL HISTORY: Occasional alcohol use, no drug use. Former smoker, quit when he was 34 years old a bout 18 years ago. OUTPATIENT MEDICATIONS: Include: 1. Eliquis 5 mg b.i.d. 2. Flecainide 50 mg b.i.d. 3. Diltiazem 180 mg q.a.m. 4. Omeprazole 40 mg q.a.m. 5. Hydrochlorothiazide 25 mg daily. 6. Lasix 40 mg as needed. 7. Crestor 10 mg q.a.m. ALLERGIES: DIVALPROEX and LATEX. REVIEW OF SYSTEMS: A 12-point review of systems was done and is all negative unless stated in the hi story of present illness. FAMILY HISTORY: Noncontributory. PHYSICAL EXAMINATION: VITAL SIGNS: Temperature 97.3, pulse 88, respiration rate 16, satting 98% on room air, blood pressur e 112/80. GENERAL: Awake, alert, oriented x3, in no distress. HEENT: Normocephalic, atraumatic. NECK: Supple. LUNGS: Clear. CARDIOVASCULAR: S1, S2, no S3, S4, no murmur. ABDOMEN: Soft, otherwise. EXTREMITIES: No edema. SKIN: Warm and dry. LABORATORY DATA: Laboratory work was reviewed. CBC and chemistries were reviewed. Potassium and el ectrolytes were normal. ASSESSMENT: 1. Chronic atrial fibrillation and RVR after surgery. Currently, continues to be rate controlled. 2. Obesity. 3. Status post lap band surgery. PLAN: 1. Agree with placing him back on his home medications. He is rate controlled again and he is havin g this fibrillation ablated in 12/20/[address] Rowland in [place]. 2. He should be able to be discharged home today. Continue home medications to make sure that Eliqu is 5 mg twice a day. Thank you for allowing us to participate in the care of your patient. We will sign off. Please call with any questions.
--- NOTE | 2017-12-21 15:22 | EKG ---
Test Reason : Blood Pressure : / mmHG Vent. Rate : 120 BPM Atrial Rate : 107 BPM P-R Int : 000 ms QRS Dur : 108 ms QT Int : 312 ms P-R-T Axes : 000 035 078 degrees QTc Int : 440 ms Atrial fibrillation with rapid ventricular response Nonspecific T wave abnormality Abnormal ECG When compared with ECG of 02-DEC-2017 22:35, Vent. rate has increased BY 41 BPM Nonspecific T wave abnormality now evident in Inferior leads Confirmed by MICHAEL PORTER, SOneil ([id number]) on 12/21/2017 3:21:35 PM Referred By: MARY JANE Confirmed By:DR. Dior RODRIGUEZ MD
[2017-12-21 17:00] VITALS: BP 124/79; TEMP 97.9
--- NOTE | 2017-12-22 19:16 | DIS ---
DATE OF ADMISSION: 12/20/2017 DATE OF DISCHARGE: 12/21/2017 DISCHARGE DISPOSITION: Home. PRIMARY DISCHARGE DIAGNOSIS: Patient is status post gastric sleeve surgery done on 12/20/2017. SECONDARY DISCHARGE DIAGNOSES: History of chronic atrial fibrillation with rapid ventricular rate, which is rate controlled, diabetes mellitus type 2, dyslipidemia, obesity, hypertension, prior history of right pneumonectomy. Histopathology from sleeve gastrectomy showed no H. pylori organism. It was an unremarkable segment of stomach nearly 18 cm in length, hemoglobin and hematocrit 14 and 42, platelet count 312, BUN 13 and creatinine 0.8. DISCHARGE MEDICATIONS: Eliquis 5 mg p.o. twice daily, Cardizem CD 180 mg p.o. daily, flecainide 50 mg twice daily, omeprazole 40 mg daily, Crestor 10 mg daily , Sinclair p.r.n. for pain. ALLERGIES: DEPAKOTE. DISCHARGE PLAN: Patient to follow up with Dr. Valles in 2 weeks and his factory assembler in [place] as advised and primary care physician in 1 week. BRIEF COURSE DURING HOSPITALIZATION: Patient was electively admitted for laparoscopic vertical sleeve gastrectomy using ViSiGi device by Dr. Yariel Valles. This was done on 12/20/2017. Postop, patient developed RVR with history of chronic atrial fibrillation. He was moved to telemetry and was closely monitored. He was briefly on Cardizem drip and was placed back on his home doses of flecainide and his Cardizem CD. He was also placed on CPAP machine at home settings for obstructive sleep apnea. Both these measures helped control his chronic atrial fibrillation. At the time of discharge, his heart rate is between 80-90. He has had consultation with Dr. Benitez of Cardiology as well. The patient has outpatient plans of EP studies and ablation on 01/14/2018 in [place] via his factory assembler. Prior to discharge, he is tolerating oral bariatric solid diet. Diuretics have been held in view of bariatric procedure. He is ambulating and eating well prior to discharge. He is cleared by all specialists for discharge. Please see a [id number] documentation on [facility] for the day of discharge. [facility]
== END 2017-12-21 16:15 | disposition home or self-care (01) | DRG 621 ==
LOC: SURG A 12-20 05:41 → 2NO 12-20 20:29
PROVIDERS: ADMIT Specialist; ATTEND Specialist
PROC: 0DB64Z3 Excision of Stomach, Percutaneous Endoscopic Approach, Vertical (ICD-10-PCS; principal; 2017-12-20)
DX: E66.01 Morbid (severe) obesity due to excess calories (principal); I48.0 Paroxysmal atrial fibrillation; E11.9 Type 2 diabetes mellitus without complications; E78.5 Hyperlipidemia, unspecified; I10 Essential (primary) hypertension; G47.33 Obstructive sleep apnea (adult) (pediatric); G40.909 Epilepsy, unspecified, not intractable, without status epilepticus; J44.9 Chronic obstructive pulmonary disease, unspecified; Z87.891 Personal history of nicotine dependence; Z91.040 Latex allergy status; Z68.41 Body mass index [BMI] 40.0-44.9, adult; E78.00 Pure hypercholesterolemia, unspecified; Z85.118 Personal history of other malignant neoplasm of bronchus and lung; Z79.4 Long term (current) use of insulin
CPT/HCPCS: 36415; 36416; 80048; 85025; 88307; 88312; 93005; 93010; 94760; C9113; J0131; J0694; J1100; J1644; J1650; J1885; J2001; J2250; J2270; J2405; J2550; J2704; J3010; J7050

== ENCOUNTER 2018-02-25 09:40 | Inpatient (IN) | payer MEDICARE, MEDICAID ==
[2018-02-25] MEDS ORDERED: Diltiazem 125 MG/25 ML ONE (10:02)
[2018-02-25 10:07] LABS: #Basophils 0.1 thou/uL (0.0-0.2); #Eosinphils 0.1 thou/uL (0.0-0.7); #Lymphocytes 2.4 thou/uL (1.20-3.40); #Monocytes 0.8 thou/uL (0.11-0.59); #Neutrophils 4.8 thou/uL (1.40-6.50); %Basophils 1.2 % (0.0-1.0); %Eosinophils 0.8 % (0.0-10.0); %Lymphocytes 29.4 % (21.0-51.0); %Monocytes 9.3 % (0.0-10.0); %Neutrophils 59.3 % (42.0-75.0); Hemoglobin 17.7 g/dL (14.0-18.0); Mean Corpuscular HGB CONC 33.2 g/dL (32.0-36.0); Mean Corpuscular Hemoglobin 29.2 pg (27.0-31.0); Mean Platelet Volume 7.4 fL (7.4-10.4); Platelet Count 235 thou/uL (130-400); RBC Distribution Width 13.4 % (11.5-14.5); Red Blood Cell (RBC) Count 6.05 mill/uL (4.70-6.10); White Blood Cell (WBC) Count 8.1 thou/uL (4.8-10.8)
--- NOTE | 2018-02-25 10:29 | RAD ---
SINGLE VIEW OF THE CHEST: COMPARISON: 12/02/2017. HISTORY: Tachycardia. The patient has a history of lung cancer status post right pneumonectomy. FINDINGS: A single view of the chest shows complete opacification of the right thorax from prior right pneumone ctomy. No left-sided infiltrates are seen. The cardiomediastinal silhouette could be assessed secon matilde to opacification of the right thorax. IMPRESSION: Stable exam without acute cardiopulmonary process. POS: ARUN
[2018-02-25 10:31] LABS: ALT (SGPT) 29 U/L (8-55); AST (SGOT) 28 U/L (5-34); Albumin 4.5 g/dL (3.5-5.0); Alkaline Phosphatase 87 U/L (40-150); Anion Gap 13 mmol/L (10-20); BUN (Urea Nitrogen) 15 mg/dL (8.9-20.6); Bilirubin, Total 1.4 mg/dL (0.2-1.2); CK (CPK) 60 U/L (30-200); Calc. Creatinine Clearance 0 mL/min (70-130); Calcium 10.7 mg/dL (7.8-10.44); Carbon Dioxide 30 mmol/L (22-29); Chloride 99 mmol/L (98-107); Estimated GFR-MDRD Greater than 90; Globulin 3.9 g/dL (2.4-3.5); Glucose 101 mg/dL (70-105); Lipase 24 U/L (8-78); Potassium 3.8 mmol/L (3.5-5.1); Protein, Total 8.4 g/dL (6.0-8.3); Sodium 138 mmol/L (136-145)
[2018-02-25 10:34] LABS: CKMB 1.3 ng/mL (0-6.6); Troponin I Less than 0.010 ng/mL (< 0.028)
--- NOTE | 2018-02-25 11:38 | PDOC.FPRHP ---
- History of Present Illness Chief Complaint: Palpitations History of Present Illness: This is a 52 yo male with a pmh of afib s/p ablation, lung cancer s/p resection , HTN, HLD, DM, COPD presents to the ED from clinic with a cc of palpitations. He states that the palpitations started this morning. He states that he was feeling fatigued and felt a heaviness in his shoulders. This is his usual response when he has afib. He was seen at his pain specialist office where his pulse as in the 160s and he was sent over to the ED. He currently denies any chest discomfort. He states that he has seen Emmanuel once or twice here but is establish with [facility]. He states that he had a cardiac ablation at the end of December with Dr. Jeffery with [facility]. He states that this procedure did not help his atrial fibrillation as it returned. ED Course: Diltiazem 20 mg then 5mg followed by gtt NS x2 L - Allergies/Adverse Reactions Allergies Allergy/AdvReac Type Severity Reaction Status Date / Time divalproex sodium Allergy blurry Verified 02/25/18 17:09 [From [facility]] vision - Home Medications Medication Instructions Recorded Confirmed Type Diltiazem HCl [Cartia XT] 180 mg PO QAM 07/25/17 02/25/18 History Omeprazole 40 mg PO QAM 07/25/17 02/25/18 History Rosuvastatin [Crestor] 10 mg PO QAM 07/25/17 02/25/18 History Apixaban [Eliquis] 5 mg PO QAM 12/03/17 02/25/18 History Flecainide Acetate 50 mg PO DAILY 12/03/17 02/25/18 History Enalapril Maleate 2.5 mg PO DAILY 02/25/18 02/25/18 History Lubiprostone [Amitiza] 24 mcg PO BID 02/25/18 02/25/18 History Metoprolol Succinate 12.5 mg PO DAILY 02/25/18 02/25/18 History Morphine ER [MS Contin] 30 mg PO Q8HR 02/25/18 02/25/18 History - History PMHx: afib s/p ablation, lung cancer s/p lung resection, HTN, HLD, DM life style controlled PSHx: Lung resection (2000), heart ablation (12/2017), Gastric sleeve (11/2017), appendectomy FHx: Father had an IL at 40 and a stroke at age 70 Social: Occasional alcohol use, denies drugs and tobacco - Review of Systems General: reports: fatigue. denies: fever/chills, weight/appetite/sleep changes Eyes: denies: eye pain, vision changes ENT: denies: nasal congestion, rhinorrhea Respiratory: denies: cough, congestion, shortness of breath Cardiovascular: reports: palpitation, other (chest discomfort). denies: chest pain Gastrointestinal: denies: nausea, vomiting, diarrhea, constipation Skin: denies: rashes, lesions Musculoskeletal: reports: pain (chronic back pain), stiffness Neurological: denies: numbness, syncope Psychological: denies: anxiety, depression - Vital signs BP: 93/74 HR: 98 RR: 16 Tmax: 97.9 Pox: 98% on RA Wt: 109.77 kg - Physical Exam Constitutional: NAD, awake, alert and oriented HEENT: normocephalic and atraumatic, EOMI, MMM Neck: trachea midline, no JVD Chest: no-tender to palpation, no lesions Heart: normal S1/S2, no murmurs/rubs/gallops, other (Regular rate, irregularly irregular rhythm) Lungs: no respiratory distress, other (Decreased air movement on right consisten with resection, good air movement on left) Abdomen: soft, non-tender, bowel sounds present, no masses/distention Musculoskeletal: normal structure, ROM grossly normal Neurological: no focal deficit, CN II-XII intact Skin: no rash/lesions, good turgor, capillary refill <2 seconds Heme/Lymphatic: no unusual bruising or bleeding Psychiatric: normal mood and affect, good judgment and insight, intact recent and remote memory FMR H&P: Results - Labs Result Diagrams: 02/26/18 06:26 02/26/18 06:26 Lab results: WBC 8.1 thou/uL (4.8-10.8) 02/25/18 09:56 Hgb 17.7 g/dL (14.0-18.0) 02/25/18 09:56 Hct 53.2 % (42.0-52.0) H 02/25/18 09:56 MCV 88.0 fL (78.0-98.0) 02/25/18 09:56 Plt Count 235 thou/uL (130-400) 02/25/18 09:56 Neutrophils % 59.3 % (42.0-75.0) 02/25/18 09:56 Sodium 138 mmol/L (136-145) 02/25/18 09:56 Potassium 3.8 mmol/L (3.5-5.1) 02/25/18 09:56 Chloride 99 mmol/L (98-107) 02/25/18 09:56 Carbon Dioxide 30 mmol/L (22-29) H 02/25/18 09:56 BUN 15 mg/dL (8.9-20.6) 02/25/18 09:56 Creatinine 0.86 mg/dL (0.6-1.3) 02/25/18 09:56 Glucose 101 mg/dL (70-105) 02/25/18 09:56 Calcium 10.7 mg/dL (7.8-10.44) H 02/25/18 09:56 Total Bilirubin 1.4 mg/dL (0.2-1.2) H 02/25/18 09:56 AST 28 U/L (5-34) 02/25/18 09:56 ALT 29 U/L (8-55) 02/25/18 09:56 Alkaline Phosphatase 87 U/L (40-150) 02/25/18 09:56 Creatine Kinase 60 U/L (30-200) 02/25/18 09:56 CK-MB (CK-2) 1.3 ng/mL (0-6.6) 02/25/18 09:56 Serum Total Protein 8.4 g/dL (6.0-8.3) H 02/25/18 09:56 Albumin 4.5 g/dL (3.5-5.0) 02/25/18 09:56 Lipase 24 U/L (8-78) 02/25/18 09:56 FMR H&P: A/P - Problem List (1) Atrial fibrillation with RVR Current Visit: Yes Status: Acute Code(s): I48.91 - UNSPECIFIED ATRIAL FIBRILLATION (2) DM type 2 (diabetes mellitus, type 2) Current Visit: No Status: Chronic Qualifiers: Diabetes mellitus nursing home insulin use: without nursing home use Diabetes mellitus complication status: with unspecified complications Qualified Code(s) : E11.8 - Type 2 diabetes mellitus with unspecified complications (3) Dyslipidemia Current Visit: No Status: Chronic Code(s): E78.5 - HYPERLIPIDEMIA, UNSPECIFIED (4) Hypertension Current Visit: No Status: Chronic Code(s): I10 - ESSENTIAL (PRIMARY) HYPERTENSION Qualifiers: Hypertension type: essential hypertension Qualified Code(s): I10 - Essential (primary) hypertension (5) Chronic back pain Current Visit: Yes Status: Acute Code(s): M54.9 - DORSALGIA, UNSPECIFIED; G89.29 - OTHER CHRONIC PAIN (6) H/O pneumonectomy Current Visit: No Status: Chronic Code(s): Z98.890 - OTHER SPECIFIED POSTPROCEDURAL STATES; Z90.2 - ACQUIRED ABSENCE OF LUNG [PART OF] Comment: right side (7) H/O: lung cancer Current Visit: No Status: Chronic Code(s): Z85.118 - PERSONAL HISTORY OF MALIGNANT NEOPLASM OF BRONCHUS AND LUNG - Plan This is a 52 yo male with a pmh of afib s/p ablation, lung cancer s/p resection , HTN, HLD, DM, COPD Atrial fibrillation with RVR -Admit to tele obs -Pt. has received diltiazem from ER and is currently on a diltiazem drip we will plan to transition to oral medications -Continue home eliquis -Cardiology was consulted from ER, we will appreciate their recommendations HTN -Hold home blood pressure medications, enalapril, HCTZ until BP improves Lung cancer -Aware HLD -Continue crestor Type 2 diabetes -Controlled with lifestyle modification Chronic back pain -Continue home MS maria de jesus GERD -2/2 recent gastric sleeve -Continue home omeprazole SIMRAN -Pt reports he uses CPAP but he has not been using it the past week to see if he still snores Code: Full Prophylaxis: none Family: at bedside and plan discussed with her Disposition: DC in 1-2 days FMR H&P: Upper Level - Pertinent history 52 yo M w/ PMH of a fib w/ prior ablation presents for a-fib with rvr and rate in 160s. Currently asymptomatic and discovered on visit to primary doctors visit. No cp, sob, diaphoresis, NVDC. - Pertinent findings PE: Gen- NAD, resting comfortably Head- NCAT CV- irregular rhythm, normal rate Resp- cta bl abd- s, NT, +BS x4 a/p 1) a-fib w/ rvr rate in 160s on admission - s/p diltiazem bolus and currentyl rate controlled at 5mg/hr dilt drip - transfer to telemetry - consult cards, titrate oral medications and wean drip as tolerated For remainder of chronic medical conditions see internal controls manager a/p, otherwise agree. - Plan Date/Time: 02/25/18 1136 IJesse DO, have evaluated this patient and agree with findings/ plan as outlined by internal controls manager resident. Pertinent changes/additions are listed here.
[2018-02-25] MEDS ORDERED: Digoxin 0.5 MG/2 ML AMP SLOW IVP SCH (13:30)
[2018-02-25] MEDS ORDERED: Ondansetron ODT 4 MG TAB PO PRN (13:33)
[2018-02-25] MEDS ORDERED: Morphine ER 30 MG TAB PO SCH (14:00)
[2018-02-25] MEDS ORDERED: Digoxin 0.5 MG/2 ML AMP ONE (14:04)
[2018-02-25 14:53] LABS: Troponin I Less than 0.010 ng/mL (< 0.028)
[2018-02-25 17:04] LABS: Troponin I Less than 0.010 ng/mL (< 0.028)
[2018-02-25 17:07] VITALS: BMI 37.0
[2018-02-25] MEDS: Digoxin 0.5 MG/2 ML AMP SLOW IVP SCH ×2 (17:25→20:17)
[2018-02-25] MEDS: Lubiprostone 24 MCG CAP PO SCH (20:16)
[2018-02-25] MEDS: Rosuvastatin 10 MG TAB PO SCH (20:17)
--- NOTE | 2018-02-25 21:11 | CON ---
DATE OF CONSULTATION: 02/25/2018 TYPE OF CONSULTATION: Cardiology. INDICATION FOR CONSULTATION: A 52-year-old patient with atrial fibrillation with rapid ventricular response. HISTORY OF PRESENT ILLNESS: This is a very pleasant 52-year-old gentleman, who has a history of atrial fibrillation, who actually underwent ablation of the atrial fibrillation approximately 4 to 6 weeks ago in [place]. He was here today to see his orthopedic physician when the vital signs were obtained and he was found to have a heart rate in the 160s and he was sent to the emergency room. He did not have any chest pain or shortness of breath and did not note he was having a rapid heart rate. At this time, he has been placed on IV Diltiazem and the heart rate is now in the 90s, but previously it was at 160, but he still remains in atrial fibrillation. He rarely feels palpitations and actually tolerates this quite well. PAST MEDICAL HISTORY: Significant for the gastric sleeve procedure, which was done by Dr. Valles in November of this year. He has a history of atrial fibrillation. He has had a right pneumonectomy due to lung cancer in 2000. He has lost about 60 pounds after the gastric sleeve was performed. SOCIAL HISTORY: He is . He has no alcohol or tobacco abuse. He has children who are alive and well. FAMILY HISTORY: Noncontributory. ALLERGIES: NONE. PRESENT MEDICATIONS: Somewhat inaccurate from the emergency room records, but appears that he has taken: 1. Eliquis. 2. He is on Diltiazem at home, p.o. Diltiazem 180 mg that sometimes he breaks into half and will take a half tablet twice a day. 3. He is on Flecainide 50 mg b.i.d. 4. He take omeprazole and Crestor 10 mg a day. 5. He also was taking hydrocodone/APAP 325/15. REVIEW OF SYSTEMS: His 12-point review of systems is unremarkable. States he does have some occasional dizziness if he gets up too quickly. He said this has occurred since he has started to lose weight. PHYSICAL EXAMINATION: GENERAL: Revealed a well-developed, well-nourished gentleman, who is in no acute distress. VITAL SIGNS: At this time, blood pressure is 114/75, heart rate is in the 90s now. At this time, he shows atrial fibrillation. HEENT: Shows the head to be normocephalic and atraumatic. Carotid pulses were present. There were no significant bruits. CHEST: He has no significant rales, rhonchi, or wheezing. Decreased breath sounds on the right side after his pneumonectomy. He has a large surgical incision, which is well healed. CARDIOVASCULAR: Reveals an irregularly irregular rhythm. There were no gross murmurs noted. ABDOMEN: Shows obesity with positive bowel sounds. No organomegaly or masses were noted. EXTREMITIES: Femoral pulses were present. Show no significant clubbing, cyanosis, or edema. NEUROLOGICAL: The patient appears to be fully intact. IMAGING STUDIES: EKG shows atrial fibrillation with rapid ventricular response of 166 beats per minute with no ST-segment changes. LABORATORY DATA: Shows a sodium of 138, potassium of 3.8, creatinine 0.86. WBC of 8.1, hemoglobin 17.7, blood sugar of 101, total bilirubin was 1.4, and calcium was 7.7. His troponin I is less than 0.01. IMPRESSION AND PLAN: 1. Atrial fibrillation with rapid ventricular response. We will need to adjust and phase his medications. He may need to undergo a repeat ablation of the atrial fibrillation or at least a repeat attempt at the atrial fibrillation. At this time, we will continue to control the heart rate with medications. We will need to add Digoxin for better rate control. Perhaps even consider beta-blockers in this patient. I do not see that he has been on flecainide and Diltiazem, but we may need to add low dose of beta-blockers in order to control the heart rate better. At this time, he is on a good control with the IV Diltiazem. 2. History of morbid obesity status post gastric sleeve procedure and this appears to be stable. 3. History of lung cancer in the past for which he underwent a right pneumonectomy. This appears to be stable and he has had no further recurrence of the cancer as far as we are aware of. Further care of the patient will be by Dr. Benitez when he visits the patient tomorrow. Job ID: [id number]
[2018-02-25] MEDS: Acetaminophen 325 MG TAB PO PRN (22:24)
[2018-02-26] MEDS: Digoxin 0.5 MG/2 ML AMP SLOW IVP SCH (02:27)
[2018-02-26] MEDS: Morphine ER 30 MG TAB PO SCH ×3 (02:30→18:08)
--- NOTE | 2018-02-26 06:08 | PDOC.FM ---
- Subjective Subjective: Pt states he slept well. He denies the same fatigue he was reporting yesterday. He denies chest pain, sob, or nausea/vomiting. He does state that he wants to establish with cardiology here. - Objective MAR Reviewed: Yes Vital Signs & Weight: Vital Signs (12 hours) Temp Pulse Resp BP BP Pulse Ox 02/26/18 04:21 97.4 F L 72 14 98/65 96 02/26/18 02:27 87 02/25/18 23:54 98.0 F 81 16 107/73 97 02/25/18 20:17 85 02/25/18 20:00 97 02/25/18 19:25 98.1 F 85 16 103/58 L 97 Weight Weight 110.54 kg I&O: 02/24/18 02/25/18 02/26/18 06:59 06:59 06:59 Intake Total 504 Balance 504 Result Diagrams: 02/26/18 06:26 02/26/18 06:26 <Tyron Das - Last Filed: 02/26/18 07:45> - Objective Vital Signs & Weight: Vital Signs (12 hours) Temp Pulse Resp BP BP Pulse Ox 02/26/18 08:50 70 02/26/18 07:25 97.5 F L 74 16 108/78 100 02/26/18 04:21 97.4 F L 72 14 98/65 96 02/26/18 02:27 87 02/25/18 23:54 98.0 F 81 16 107/73 97 Weight Weight 110.54 kg I&O: 02/25/18 02/26/18 02/27/18 06:59 06:59 06:59 Intake Total 839.9 Balance 839.9 Result Diagrams: 02/26/18 06:26 02/26/18 06:26 <Maximiliano Espinosa - Last Filed: 02/26/18 09:37> Phys Exam - Physical Examination Constitutional: NAD HEENT: moist MMs Neck: supple Respiratory: no wheezing, clear to auscultation bilateral Cardiovascular: no significant murmur irregular rhythm, Tele shows afib in the 70s Gastrointestinal: soft, non-tender, no distention, positive bowel sounds Musculoskeletal: no edema, pulses present Neurological: non-focal, moves all 4 limbs Psychiatric: normal affect, A&O x 3 Skin: cap refill <2 seconds <Tyron Das - Last Filed: 02/26/18 07:45> Dx/Plan (1) Atrial fibrillation with RVR Code(s): I48.91 - UNSPECIFIED ATRIAL FIBRILLATION Status: Acute (2) DM type 2 (diabetes mellitus, type 2) Status: Chronic Qualifiers: Diabetes mellitus custodial insulin use: without custodial use Diabetes mellitus complication status: with unspecified complications Qualified Code(s) : E11.8 - Type 2 diabetes mellitus with unspecified complications (3) Dyslipidemia Code(s): E78.5 - HYPERLIPIDEMIA, UNSPECIFIED Status: Chronic (4) Hypertension Code(s): I10 - ESSENTIAL (PRIMARY) HYPERTENSION Status: Chronic Qualifiers: Hypertension type: essential hypertension Qualified Code(s): I10 - Essential (primary) hypertension (5) Chronic back pain Code(s): M54.9 - DORSALGIA, UNSPECIFIED; G89.29 - OTHER CHRONIC PAIN Status: Acute (6) H/O pneumonectomy Code(s): Z98.890 - OTHER SPECIFIED POSTPROCEDURAL STATES; Z90.2 - ACQUIRED ABSENCE OF LUNG [PART OF] Status: Chronic (7) H/O: lung cancer Code(s): Z85.118 - PERSONAL HISTORY OF MALIGNANT NEOPLASM OF BRONCHUS AND LUNG Status: Chronic - Plan Plan: This is a 52 yo male with a pmh of afib s/p ablation, lung cancer s/p resection , HTN, HLD, DM, COPD Atrial fibrillation with RVR -Admit to tele obs -Pt. has received diltiazem from ER and is currently on a diltiazem drip we will plan to transition to oral medications -Continue home eliquis -Cardiology was consulted from ER (02/25/18), we will appreciate their recommendations HTN -Hold home blood pressure medications, enalapril, HCTZ until BP improves Lung cancer -Aware HLD -Continue crestor Type 2 diabetes -Controlled with lifestyle modification Chronic back pain -Continue home MS maria de jesus GERD -2/2 recent gastric sleeve -Continue home omeprazole SIMRAN -Pt reports he uses CPAP but he has not been using it the past week to see if he still snores <Tyron Das - Last Filed: 02/26/18 07:45> Attending Addendum - Attending Addendum Date/Time: 02/26/18929 I personally evaluated the patient and discussed the management with Dr. Das. I agree with the History, Examination, Assessment and Plan documented above with any addition or exceptions noted below. Pt here for a-fib with RVR. He has been rate controlled on the tele monitor overnight. Asymptomatic- denies palpitations, CP, and SOB. Cardiology evaluated and has digoxin to regimen. Will confirm current medications with patient because there is some discrepancies with refill history at the pharmacy. Plan to wean gtt today and convert to oral medications for continued rate control. <Maximiliano Espinosa - Last Filed: 02/26/18 09:37>
[2018-02-26 06:56] LABS: #Basophils 0.1 thou/uL (0.0-0.2); #Eosinphils 0.1 thou/uL (0.0-0.7); #Lymphocytes 2.9 thou/uL (1.20-3.40); #Monocytes 0.8 thou/uL (0.11-0.59); #Neutrophils 2.4 thou/uL (1.40-6.50); %Basophils 0.9 % (0.0-1.0); %Eosinophils 1.2 % (0.0-10.0); %Lymphocytes 46.6 % (21.0-51.0); %Monocytes 12.4 % (0.0-10.0); %Neutrophils 38.9 % (42.0-75.0); Hemoglobin 14.6 g/dL (14.0-18.0); Mean Corpuscular HGB CONC 33.7 g/dL (32.0-36.0); Mean Corpuscular Hemoglobin 30.1 pg (27.0-31.0); Mean Corpuscular Volume 89.4 fL (78.0-98.0); Mean Platelet Volume 7.4 fL (7.4-10.4); Platelet Count 200 thou/uL (130-400); RBC Distribution Width 13.3 % (11.5-14.5); Red Blood Cell (RBC) Count 4.86 mill/uL (4.70-6.10); White Blood Cell (WBC) Count 6.1 thou/uL (4.8-10.8)
[2018-02-26 07:02] LABS: ALT (SGPT) 46 U/L (8-55); AST (SGOT) 46 U/L (5-34); Albumin 3.5 g/dL (3.5-5.0); Alkaline Phosphatase 79 U/L (40-150); Anion Gap 10 mmol/L (10-20); BUN (Urea Nitrogen) 11 mg/dL (8.9-20.6); Bilirubin, Total 1.4 mg/dL (0.2-1.2); Calc. Creatinine Clearance 209 mL/min (70-130); Calcium 9.1 mg/dL (7.8-10.44); Carbon Dioxide 28 mmol/L (22-29); Chloride 103 mmol/L (98-107); Estimated GFR-MDRD Greater than 90; Globulin 2.7 g/dL (2.4-3.5); Glucose 78 mg/dL (70-105); Potassium 3.8 mmol/L (3.5-5.1); Protein, Total 6.2 g/dL (6.0-8.3); Sodium 137 mmol/L (136-145)
[2018-02-26] MEDS: Acetaminophen 325 MG TAB PO PRN (08:42)
[2018-02-26] MEDS: Lubiprostone 24 MCG CAP PO SCH ×2 (08:44→21:01)
[2018-02-26] MEDS ORDERED: Digoxin 0.5 MG/2 ML AMP SLOW IVP SCH (09:00)
[2018-02-26] MEDS ORDERED: Flecainide 50 MG TAB PO SCH (09:00)
[2018-02-26] MEDS ORDERED: Apixaban 5 MG TAB PO SCH (09:00)
[2018-02-26] MEDS: [UNRECOGNIZED DRUG - MIXTURE] PO SCH ×2 (17:00→21:00)
[2018-02-26] MEDS: Flecainide 50 MG TAB PO SCH (21:00)
[2018-02-26] MEDS: Rosuvastatin 10 MG TAB PO SCH (21:00)
[2018-02-26] MEDS: Apixaban 5 MG TAB PO SCH (21:01)
[2018-02-26] MEDS: CALCIUM CITRATE 600 MG PO SCH (22:36)
[2018-02-27] MEDS: Morphine ER 30 MG TAB PO SCH ×2 (02:37→11:10)
--- NOTE | 2018-02-27 05:24 | PDOC.FM ---
- Subjective Subjective: Pt is doing well today. He denies chest pain, SOB, palpitations, or fatigue previously associated with afib. He denies waking himself up snoring overnight. - Objective MAR Reviewed: Yes Vital Signs & Weight: Vital Signs (12 hours) Temp Pulse Resp BP BP Pulse Ox 02/27/18 03:54 98.3 F 77 17 103/63 97 02/26/18 23:38 97.7 F 67 18 113/65 97 02/26/18 19:24 97.9 F 73 12 123/74 100 Weight Weight 109.452 kg I&O: 02/25/18 02/26/18 02/27/18 06:59 06:59 06:59 Intake Total 839.9 570 Balance 839.9 570 Result Diagrams: 02/26/18 06:26 02/26/18 06:26 <Tyron Das - Last Filed: 02/27/18 08:15> - Objective Vital Signs & Weight: Vital Signs (12 hours) Temp Pulse Resp BP BP Pulse Ox 02/27/18 07:14 98.4 F 72 20 112/70 99 02/27/18 03:54 98.3 F 77 17 103/63 97 02/26/18 23:38 97.7 F 67 18 113/65 97 Weight Weight 109.452 kg I&O: 02/26/18 02/27/18 02/28/18 06:59 06:59 06:59 Intake Total 839.9 1070 Balance 839.9 1070 Result Diagrams: 02/26/18 06:26 02/26/18 06:26 <Maximiliano Espinosa - Last Filed: 02/27/18 09:55> Phys Exam - Physical Examination Constitutional: NAD HEENT: moist MMs Neck: supple Respiratory: no wheezing, clear to auscultation bilateral Cardiovascular: no significant murmur rate controlled afib Gastrointestinal: soft, non-tender, no distention, positive bowel sounds Musculoskeletal: no edema, pulses present Neurological: moves all 4 limbs Psychiatric: normal affect, A&O x 3 Skin: cap refill <2 seconds <Tyron Das - Last Filed: 02/27/18 08:15> Dx/Plan (1) Atrial fibrillation with RVR Code(s): I48.91 - UNSPECIFIED ATRIAL FIBRILLATION Status: Acute (2) DM type 2 (diabetes mellitus, type 2) Status: Chronic Qualifiers: Diabetes mellitus prison insulin use: without manager long term care use Diabetes mellitus complication status: with unspecified complications Qualified Code(s) : E11.8 - Type 2 diabetes mellitus with unspecified complications (3) Dyslipidemia Code(s): E78.5 - HYPERLIPIDEMIA, UNSPECIFIED Status: Chronic (4) Hypertension Code(s): I10 - ESSENTIAL (PRIMARY) HYPERTENSION Status: Chronic Qualifiers: Hypertension type: essential hypertension Qualified Code(s): I10 - Essential (primary) hypertension (5) Chronic back pain Code(s): M54.9 - DORSALGIA, UNSPECIFIED; G89.29 - OTHER CHRONIC PAIN Status: Acute (6) H/O pneumonectomy Code(s): Z98.890 - OTHER SPECIFIED POSTPROCEDURAL STATES; Z90.2 - ACQUIRED ABSENCE OF LUNG [PART OF] Status: Chronic (7) H/O: lung cancer Code(s): Z85.118 - PERSONAL HISTORY OF MALIGNANT NEOPLASM OF BRONCHUS AND LUNG Status: Chronic - Plan Plan: This is a 52 yo male with a pmh of afib s/p ablation, lung cancer s/p resection , HTN, HLD, DM, COPD Atrial fibrillation with RVR -Admit to tele obs -Pt is converted to PO medications. -Continue home eliquis -Cardiology was consulted from ER (02/25/18), we will appreciate their recommendations -Cardiology is planning on JOSÉ MIGUEL and cardioversion today -I spoke with pt's cardiology group in [place] and they report that they did not send him home on oral diltiazem after his ablation HTN -Hold home blood pressure medications, enalapril, HCTZ until BP improves Lung cancer -Aware HLD -Continue crestor Type 2 diabetes -Controlled with lifestyle modification Chronic back pain -Continue home MS contin GERD -2/2 recent gastric sleeve -Continue home omeprazole SIMRAN -Pt reports he uses CPAP but he has not been using it the past week to see if he still snores <Tyron Das - Last Filed: 02/27/18 08:15> Attending Addendum - Attending Addendum Date/Time: 02/27/18 [id number] I personally evaluated the patient and discussed the management with Dr. Das I agree with the History, Examination, Assessment and Plan documented above with any addition or exceptions noted below. Patient has been evaluated by Cardiology- no longer taking digoxin or diltiazem. He is currently rate controlled on metoprolol. Scheduled for JOSÉ MIGUEL and cardioversion today. Will f/u results and speak with Cardiology regarding medication regimen moving forward. <Maximiliano Espinosa - Last Filed: 02/27/18 09:55>
[2018-02-27] MEDS ORDERED: PROPOFOL 40 ML ONE (08:28)
[2018-02-27] MEDS: Flecainide 50 MG TAB PO SCH (11:03)
[2018-02-27] MEDS: Apixaban 5 MG TAB PO SCH (11:05)
[2018-02-27] MEDS: Lubiprostone 24 MCG CAP PO SCH (11:06)
[2018-02-27] MEDS: [UNRECOGNIZED DRUG - MIXTURE] PO SCH (11:07)
[2018-02-27 11:51] VITALS: BP 83/52; TEMP 97.6
[2018-02-27] MEDS: CALCIUM CITRATE 600 MG PO SCH (13:35)
--- NOTE | 2018-02-27 21:18 | ECHO ---
52-year-old gentleman with paroxysmal atrial fibrillation. DESCRIPTION OF PROCEDURE: The patient was taken to the PACU. The patient was sedated by anesthesiology. A transesophageal pro be was placed into the distal esophagus and stomach. Echocardiographic images were obtained. The tr ansesophageal probe was removed. FINDINGS: 1. There appears to be decreased left ventricular systolic function. 2. Left atrial enlargement. 3. Normal mitral and aortic valves. 4. Moderate to severe mitral regurgitation. 5. Mild tricuspid regurgitation. 6. No thrombus in atrium or left atrial appendage. 7. Atherosclerotic debris in the descending aorta. IMPRESSION: No formed thrombus in the left atrial or left atrial appendage.
--- NOTE | 2018-02-27 21:25 | OP ---
52-year-old gentleman with paroxysmal atrial fibrillation. This patient was taken to the PACU. The patient was sedated by anesthesiology. The patient was shocke d by with 200 joules of synchronized electricity. The patient converted to normal sinus rhythm. IMPRESSION: Successful electrocardioversion.
--- NOTE | 2018-03-01 15:59 | DIS ---
DATE OF ADMISSION: 02/27/2018 DATE OF DISCHARGE: 02/27/2018 RESIDENT: Tyron Das DO. ADMITTING ATTENDING: Maximiliano Espinosa MD. DISCHARGE ATTENDING: Maximiliano Espinosa MD. CONSULT: Cardiology, Dr. Roberts. PROCEDURES PERFORMED: 1. Single-view chest x-ray, stable exam without acute cardiopulmonary process. 2. JOSÉ MIGUEL showing decreased left ventricular systolic function, left atrial enlargement [id number] mitral regurgitation, mild tricuspid regurgitation, no thrombus in the atrium . 3. Successful electrocardioversion. PRIMARY DIAGNOSIS: Chronic atrial fibrillation, status post ablation. SECONDARY DIAGNOSES: 1. Hypertension. 2. Hyperlipidemia. 3. Type 2 diabetes. 4. Chronic obstructive pulmonary disease. 5. Lung cancer, status post resection. DISCHARGE MEDICATIONS: 1. Eliquis 5 mg p.o. b.i.d. 2. Calcium citrate 600 mg p.o. b.i.d. 3. Enalapril 2.5 mg p.o. daily. 4. Flecainide 50 mg p.o. q.12 hours. 5. Lubiprostone 24 mcg p.o. b.i.d. 6. Metoprolol 25 mg p.o. b.i.d. 7. Morphine ER 30 mg p.o. q.8 hours. 8. Multivitamin 1 p.o. daily. 9. Omeprazole 40 mg p.o. q.a.m. 10. Rosuvastatin 10 mg p.o. q.a.m. DISCONTINUED MEDICATIONS: Diltiazem 180 mg p.o. daily. BRIEF HISTORY OF PRESENT ILLNESS/HOSPITAL COURSE: This is a 52-year-old male with past medical history as above, who presented from clinic to the ER with AFib with RVR. The patient reports palpitations, which started earlier the morning of admission. He also reports fatigue and heaviness in his shoulders. The patient was admitted to the hospital and his rate was controlled with diltiazem drip, converted to p.o. medications. The patient tolerated this regimen well, and was eventually decided by Cardiology to cardiovert. No thrombus was seen in heart as mentioned above. Successful cardioversion was completed. The patient was stable after cardioversion and remained in normal sinus rhythm. DISPOSITION: Stable. DISCHARGE INSTRUCTIONS: 1. Location: Home. 2. Diet: Heart-healthy and carb-consistent diet. 3. Activity: As tolerated. 4. Followup: With PCP and Dr. Howe in 1 to 2 weeks. Job ID: [id number]
--- NOTE | 2018-03-02 14:02 | EKG ---
Test Reason : PALPAITATIONS Blood Pressure : / mmHG Vent. Rate : 166 BPM Atrial Rate : 163 BPM P-R Int : 000 ms QRS Dur : 102 ms QT Int : 298 ms P-R-T Axes : 000 010 052 degrees QTc Int : 495 ms Atrial fibrillation with rapid ventricular response Septal infarct , age undetermined Abnormal ECG Confirmed by JOANA PORTER, JESSICA Griffith ([id number]), news videotape editor KAREN GARCIA ([id number]) on 03/02/2018 2:01:59 PM Referred By: Confirmed By:JESSICA BERNARD MD
== END 2018-02-27 14:55 | disposition home or self-care (01) | DRG 310 ==
LOC: ERS 09:40 → ERHOLD 10:37 → 2SW 16:49 → OBSVTOIN 02-27 09:58
PROVIDERS: ADMIT Family Medicine; ATTEND Family Medicine
PROC: B246ZZ4 Ultrasonography of Right and Left Heart, Transesophageal (ICD-10-PCS; principal; 2018-02-27)
DX: I48.91 Unspecified atrial fibrillation (principal); Z79.01 Long term (current) use of anticoagulants; I10 Essential (primary) hypertension; E78.00 Pure hypercholesterolemia, unspecified; E11.9 Type 2 diabetes mellitus without complications; J44.9 Chronic obstructive pulmonary disease, unspecified; E78.5 Hyperlipidemia, unspecified; M54.9 Dorsalgia, unspecified; G89.29 Other chronic pain; Z98.890 Other specified postprocedural states; Z85.118 Personal history of other malignant neoplasm of bronchus and lung; K21.9 Gastro-esophageal reflux disease without esophagitis; G47.33 Obstructive sleep apnea (adult) (pediatric)
CPT/HCPCS: 36415; 71045; 80053; 82550; 82553; 83690; 84484; 85025; 92960; 93005; 93312; 94760; J1160; J2704; J7050

== ENCOUNTER 2018-05-23 12:06 | Emergency (ER) | payer MEDICARE, MEDICAID ==
[2018-05-23 12:40] LABS: #Basophils 0.1 thou/uL (0.0-0.2); #Lymphocytes 2.5 thou/uL (1.20-3.40); #Monocytes 0.8 thou/uL (0.11-0.59); #Neutrophils 4.7 thou/uL (1.40-6.50); %Eosinophils 0.6 % (0.0-10.0); %Lymphocytes 30.9 % (21.0-51.0); %Monocytes 9.7 % (0.0-10.0); %Neutrophils 57.9 % (42.0-75.0); Hemoglobin 17.3 g/dL (14.0-18.0); Mean Corpuscular HGB CONC 33.1 g/dL (32.0-36.0); Mean Corpuscular Hemoglobin 30.8 pg (27.0-31.0); Platelet Count 302 thou/uL (130-400); RBC Distribution Width 12.8 % (11.5-14.5); Red Blood Cell (RBC) Count 5.64 mill/uL (4.70-6.10)
[2018-05-23] MEDS ORDERED: Fentanyl 100 MCG/2 ML VIAL ONE (12:56)
[2018-05-23] MEDS ORDERED: Midazolam HCl 2 mg/2 ml Vial ONE ×2 (12:56→13:11)
[2018-05-23 13:02] LABS: ALT (SGPT) 20 U/L (8-55); AST (SGOT) 32 U/L (5-34); Alkaline Phosphatase 80 U/L (40-150); Anion Gap 15 mmol/L (10-20); BUN (Urea Nitrogen) 18 mg/dL (8.9-20.6); Bilirubin, Total 1.2 mg/dL (0.2-1.2); Calc. Creatinine Clearance 0 mL/min (70-130); Calcium 10.3 mg/dL (7.8-10.44); Carbon Dioxide 25 mmol/L (22-29); Chloride 103 mmol/L (98-107); Estimated GFR-MDRD Greater than 90; Globulin 3.5 g/dL (2.4-3.5); Glucose 85 mg/dL (70-105); INR-International Normal Ratio 1.1; Magnesium 2.1 mg/dL (1.6-2.6); PTT 30.8 SEC (22.9-36.1); Potassium 4.5 mmol/L (3.5-5.1); Protein, Total 7.5 g/dL (6.0-8.3); Sodium 138 mmol/L (136-145)
--- NOTE | 2018-05-23 13:11 | RAD ---
PORTABLE CHEST: HISTORY: The patient has chest pain and reports heart racing at home. History of atrial fibrillation. COMPARISON: A 02/25/2018 examination. FINDINGS: Postop right pneumonectomy changes are seen with complete opacification of the right hemithorax shift of trachea to the right. The left lung remains clear. No signs of left-sided effusion. No signifi cant bony findings. IMPRESSION: Post right pneumonectomy changes, stable overall exam. POS: [facility]
[2018-05-23] MEDS ORDERED: Flecainide 50 MG TAB PO SCH (13:45)
--- NOTE | 2018-05-23 21:23 | CON ---
DATE OF CONSULTATION: 05/23/2018 REASON FOR CONSULTATION: Atrial flutter. HISTORY OF PRESENT ILLNESS: Mr. Crowell is a pleasant 52-year-old gentleman, who presented to the emergency room and was found to be in atrial flutter with RVR of approximately 140 beats per minute. He carries a history of atrial fibrillation and underwent PVI around November or December of 2017 in [place]. Since then, he follows with Dr. Howe for Cardiology. He has been kept on flecainide 50 mg b.i.d. in addition to Toprol 25 mg daily. He has had some issues with hypotension and actually did have an early recurrence with this similar atypical atrial flutter in February. At that time, he was placed on IV diltiazem and underwent a synchronized cardioversion eventually to restore sinus mechanism. Also of note, he underwent gastric sleeve procedure in November of 2017. Mr. Crowell is currently feeling fairly well. He is in the emergency room. He remains in atrial flutter with RVR. He has some dizziness associated with his rapid rate. He had been having falls at home secondary to dizziness upon standing. Otherwise, he is currently feeling well. He is also maintained on chronic Eliquis for anticoagulation with his atrial arrhythmias. REVIEW OF SYSTEMS: A 12-point review of systems is conducted and is negative except that listed above in HPI. PAST MEDICAL HISTORY: 1. Atrial fibrillation, status post PVI in approximately November to December of 2017, done in [place]. 2. Recurrent atypical atrial flutter following PVI, moderately suppressed with flecainide. 3. Elevated CHADS-VASc score with an indication for oral anticoagulation, currently on Eliquis. 4. Gastric sleeve procedure in November of 2018, performed by Dr. Valles. 5. Right pneumonectomy, secondary to lung cancer in 2000. 6. Obesity, status post gastric sleeve procedure as mentioned above with approximately 100-pound weight loss thus far. SOCIAL HISTORY: . Negative for alcohol, tobacco, or illicit drug use. He has children. FAMILY HISTORY: Noncontributory. Negative for sudden cardiac . ALLERGIES: NONE. MEDICATIONS: Include: 1. Flecainide 50 mg b.i.d. 2. Toprol-XL 25 mg b.i.d. 3. Atorvastatin and Eliquis 5 mg b.i.d. PHYSICAL EXAMINATION: VITAL SIGNS: Heart rate is currently 140 beats per minute, blood pressure 124/ 72, but has been hypotensive in the emergency room as low as 80s systolic, and oxygen is 95% on supplemental O2. GENERAL: The patient is lethargic and somewhat sedated after recently being given Versed and fentanyl for cardioversion in the emergency room, but is oriented to times, person, place, date, and situation. His is at bedside and present for the exam. He is in no apparent distress. NECK: Supple without jugular venous distention. LUNGS: Left lung oscar are clear to auscultation. Right lung oscar are absent, status post pneumonectomy. HEART: Tones are audible, but shifted towards the right side of the chest. ABDOMEN: Soft and nontender without palpable masses. There are scars in the epigastric area from his gastric sleeve. EXTREMITIES: Warm and dry to touch without clubbing, cyanosis, or edema. NEUROLOGIC: Not performed due to the recent sedation was administered. DATABASE: EKG and telemetry were all personally reviewed. Initial presenting rhythm shows an atypical atrial flutter with variable AV conduction with ventricular rates roughly in the 130 to 145 beats per minute range. Two attempted cardioversions were performed by the ER physician initially and very briefly restoring sinus rhythm for reportedly 10 seconds before resuming atrial flutter. Current rhythm is atypical atrial flutter with a ventricular rate of 140 beats per minute. By the end of the consultation, the patient has spontaneously converted into sinus rhythm within with rates in the 70s. Database and laboratory: Hematology was reviewed and unremarkable. Chemistry; potassium 4.5, creatinine 0.80, GFR greater than 90, and magnesium 2.1. Troponin was negative. Chest x-ray; impression, prior right pneumonectomy changes. Overall stable exam. There is complete opacity of the right hemothorax with shift of the trachea to the right. No signs of left-sided effusion and the left lung remains clear. IMPRESSION: 1. Atypical atrial flutter, most recently seen with 2:1 AV damon conduction, but was variable on initial presentation. 2. Paroxysmal atrial fibrillation, status post PVI in approximately December 2017 in [place], [place]. 3. Orthostatic hypotension. 4. Gastric sleeve in November of 2017 with approximately 100-pound weight loss since then. 5. History of lung cancer with right pneumonectomy. 6. Chronic OAC with Eliquis and antiarrhythmic therapy with flecainide. PLAN AND RECOMMENDATIONS: 1. Recommend acute cardioversion, which has already been performed and failed x2 in the emergency room before the patient has spontaneously converted for his early recurrent atrial flutter. 2. Plan to increase flecainide to 100 mg p.o. b.i.d. with a now dose of 50 mg. Ideally, we would like to increase his beta-shruthi therapy to Toprol-XL 50 mg daily as well. However, with his recent history of hypotension and orthostatic issues with falls at home, this will likely not be possible, so we will keep his home dose of Toprol as is for now. 3. Monitor his blood pressure for orthostatics. 4. We will contact him in the near future for close followup and appointment to discuss further treatment options regarding this recurrent atrial arrhythmia upon the patient's request. Overall, he is currently in sinus rhythm. His vital signs remained stable upon recovering from the recent sedation. He is cleared for discharge by us and we will follow up in the near future. Thank you for allowing us to participate in the care of this patient. Job ID: [id number] RBANDON
== END 2018-05-23 16:00 | disposition home or self-care (01) ==
LOC: ERS 12:06
DX: I48.92 Unspecified atrial flutter (principal); E78.5 Hyperlipidemia, unspecified; I10 Essential (primary) hypertension; E11.9 Type 2 diabetes mellitus without complications; J44.9 Chronic obstructive pulmonary disease, unspecified; Z79.899 Other long term (current) drug therapy
CPT/HCPCS: 71045; 80053; 83735; 84484; 85025; 85610; 85730; 93005; 96374; 96375; J2250; J3010

== ENCOUNTER 2018-06-01 11:23 | Inpatient (IN) | payer MEDICARE, MEDICAID ==
[2018-06-01] MEDS ORDERED: Magnesium 2 GM/50 ML BAG (IN WATER) ONE (11:32)
[2018-06-01] MEDS ORDERED: Digoxin 0.5 MG/2 ML AMP ONE (11:32)
[2018-06-01] MEDS ORDERED: Metoprolol Tartrate 5 MG/5 ML VIAL ONE (11:43)
[2018-06-01 11:52] LABS: #Lymphocytes 1.2 thou/uL (1.20-3.40); #Monocytes 0.8 thou/uL (0.11-0.59); #Neutrophils 11.1 thou/uL (1.40-6.50); %Basophils 0.2 % (0.0-1.0); %Eosinophils 0.1 % (0.0-10.0); %Lymphocytes 8.8 % (21.0-51.0); %Neutrophils 84.8 % (42.0-75.0); Hemoglobin 17.5 g/dL (14.0-18.0); Mean Corpuscular HGB CONC 33.6 g/dL (32.0-36.0); Mean Corpuscular Volume 92.2 fL (78.0-98.0); Mean Platelet Volume 7.2 fL (7.4-10.4); Platelet Count 312 thou/uL (130-400); RBC Distribution Width 12.6 % (11.5-14.5); Red Blood Cell (RBC) Count 5.64 mill/uL (4.70-6.10); White Blood Cell (WBC) Count 13.1 thou/uL (4.8-10.8)
--- NOTE | 2018-06-01 12:01 | RAD ---
RADIOGRAPH CHEST 1 VIEW: Date: 06/01/2018. Time: 10:49 a.m. HISTORY: A 52-year-old male with dyspnea and atrial fibrillation, with palpitations. COMPARISON: 05/23/2018. FINDINGS: Again noted is total opacification of the right hemithoracic cavity, and deviation of the heart and t rachea to the right. There is associated hyperexpansion of the left lung. The left lung appears to be grossly clear. No pneumothorax identified. Left lateral costophrenic angle is sharp. No interva l change. Surgical clips at right mediastinum. IMPRESSION: 1. Status post right total pneumonectomy, with fluid filling the right pleural cavity. 2. Hyperinflation of the left lung. 3. No acute findings. BRANDON [] POS: ARUN
[2018-06-01 12:02] LABS: INR-International Normal Ratio 1.2; PTT 32.7 SEC (22.9-36.1); Prothrombin Time 15.5 SEC (12.0-14.7)
[2018-06-01 12:12] LABS: Acetaminophen Less than 6.0 mcg/mL (10.0-30.0); Alcohol Less than 10 mg/dL (Less than 10); Salicylate Less than 8.0 mg/dL (15.0-30.0)
[2018-06-01 12:13] LABS: ALT (SGPT) 20 U/L (8-55); AST (SGOT) 24 U/L (5-34); Albumin 4.5 g/dL (3.5-5.0); Alkaline Phosphatase 80 U/L (40-150); Anion Gap 17 mmol/L (10-20); BUN (Urea Nitrogen) 16 mg/dL (8.9-20.6); Bilirubin, Total 2.1 mg/dL (0.2-1.2); CK (CPK) 112 U/L (30-200); Calc. Creatinine Clearance 0 mL/min (70-130); Calcium 10.1 mg/dL (7.8-10.44); Carbon Dioxide 25 mmol/L (22-29); Chloride 101 mmol/L (98-107); Estimated GFR-MDRD Greater than 90; Globulin 3.3 g/dL (2.4-3.5); Glucose 78 mg/dL (70-105); Lipase 20 U/L (8-78); Potassium 3.6 mmol/L (3.5-5.1); Protein, Total 7.8 g/dL (6.0-8.3); Sodium 139 mmol/L (136-145)
[2018-06-01] MEDS ORDERED: Furosemide 40 MG/4 ML VIAL ONE (13:02)
[2018-06-01 13:29] LABS: Bilirubin Moderate (Negative); Blood, Urine Negative (Negative); Clarity CLEAR (Clear); Glucose, Urine (Dipstick) Negative (Negative); Leukocyte Negative (Negative); Nitrite Negative (Negative); Protein, Urine (Dipstick) Negative (Neg-Trace); Specific Gravity, Urine 1.035 (1.002-1.036); Urobilinogen 0.2 mg/dL (0.2-1.0); pH, Urine 5.5 (5.0-9.0)
[2018-06-01 13:43] LABS: Amphetamine Not Detected (NotDetected); Barbiturates Screen Not Detected (NotDetected); Benzodiazepine Screen Not Detected (NotDetected); Cocaine Metabolite Screen Not Detected (NotDetected); Medtox Control Line Valid? VALID (VALID); Medtox Reader # READER 4; Methadone Not Detected (NotDetected); Methamphetamine Not Detected (NotDetected); Opiate Screen Not Detected (NotDetected); Oxycodone Screen Not Detected (NotDetected); Phencyclidine (PCP) Not Detected (NotDetected); THC/Cannabinoid Screen Not Detected (NotDetected); Tricyclic Screen Not Detected (NotDetected)
[2018-06-01] MEDS ORDERED: Flecainide 50 MG TAB PO SCH ×2 (14:00→21:00)
[2018-06-01] MEDS ORDERED: Acetaminophen 500 MG TAB ONE (14:53)
--- NOTE | 2018-06-01 15:56 | HP ---
CHIEF COMPLAINT: Palpitations. HISTORY OF PRESENT ILLNESS: This patient is a 52-year-old male with a history of lung cancer status post total right pneumonectomy. He also has a history of atrial fibrillation/flutter and had an ablation which was apparently unsuccessful in [place]. Since that time, the patient has had multiple recurrences and has had multiple cardioversions. The patient had recurrence of atrial fibrillation/flutter with cardioversion on May 23. At that time, he was seen in consultation by Dr. Johansen in the emergency department. The patient had spontaneously converted back to a sinus rhythm. The plan was for him to follow up as an outpatient for recurrent atypical atrial flutter. Apparently at that time, the plan was to try to increase his flecainide to 100 mg b.i.d. and push his Toprol. However, the patient's blood pressure would not accommodate that. The patient reports over the last couple of days he has had significant nausea, vomiting, and diarrhea. He believes he ate something yesterday, it was tainted, it was precooked meal and subsequent to that, he developed the GI distress. He had some chills yesterday associated with that. He had no ill contacts and no one else in the household is ill. The patient reports that he was aware when he flipped back into the atrial fibrillation with rapid ventricular response. He presented to the emergency department today when his palpitations persisted. He currently reports no active nausea, but he does have some generalized abdominal discomfort. REVIEW OF SYSTEMS: All other systems were reviewed and all pertinent positives and negatives noted in the history of present illness. PAST MEDICAL HISTORY: As noted above significant for the history of lung cancer requiring total right pneumonectomy in 2000. He has had a gastric sleeve procedure done in November of 2017 and he has had significant weight loss. He states he has felt remarkably better since that time. He had the ablation done in December of 2017. He has hypertension, hyperlipidemia, and formally had some diabetes that was not requiring medications. FAMILY HISTORY: Father had an IN at 40 and a stroke at 70. SOCIAL HISTORY: Occasional alcohol. Denies any tobacco or drugs. He is full code and his would be his surrogate decision maker. ALLERGIES: DIVALPROEX. CURRENT MEDICATIONS: 1. Eliquis 5 mg b.i.d. 2. Metoprolol-XL 25 mg daily. 3. Crestor 10 mg daily. 4. Flecainide 50 mg b.i.d. PHYSICAL EXAMINATION: VITAL SIGNS: Currently, heart rate 114, respirations 18, O2 saturation 98% on room air, BP 100s/70s. GENERAL APPEARANCE: Age-appropriate male, in no distress. He is awake, alert, oriented, pleasant, and cooperative. HEENT: The patient has several pimple like lesions on his right forehead, but also one on the left temporal area. There is no halo of erythema and there is no neuralgia to light touch. He has no OP lesions. NECK: Supple and symmetric. HEART: He is tachycardic. LUNGS: Clear to auscultation bilaterally with good chest wall expansion and air exchange. ABDOMEN: Soft, nontender, and nondistended. Positive bowel sounds. No masses. No organomegaly. EXTREMITIES: No edema, cyanosis, or clubbing. SKIN: Other than the lesions on the forehead, warm and dry. NEUROLOGICAL: The patient is intact with no focal deficits. PSYCHIATRIC: The patient has normal affect and behavior. LABORATORY DATA: White count 13.1, hemoglobin 17.5, platelets 312. PT is 15.5, INR 1.2. Sodium 139, potassium 3.6, chloride 101, BUN 16, creatinine 0.77, glucose 78, calcium 10.1, total bilirubin 2.1, AST 24, ALT 18, total troponin 0.013. BNP 607.8. Urinalysis shows some bilirubin, trace ketones. Drug screen is negative. Chest x-ray shows the right pneumonectomy with a fluid-filled right hemithorax with hyperinflation of the left lung, nothing acute. IMPRESSION AND PLAN: 1. Atrial flutter with rapid ventricular response. In the emergency department, the patient received p.o. flecainide 50 mg, IV magnesium, IV Lopressor, and had cardioversion attempted twice. This was unsuccessful and the patient was subsequently given 0.5 mg of IV digoxin. Currently, he is in flutter at 114. His symptoms are improved and he appears to be holding stable with that heart rate. Cardiology has been called by the ER physician and will defer any further aggressive management to them. I do believe the patient needs some additional fluids given his nausea, vomiting, and diarrhea over the last couple days. He received a dose of Lasix in the emergency department initially with an elevated BNP. However, he was given 500 of normal saline. He continues to have fluids going now. 2. Gastroenteritis, unclear etiology. Certainly, the patient may have had some degree of food poisoning. However, he may have had a simple viral illness. His white count being slightly elevated. It is difficult to interpret in the grand scheme of things. However, certainly could represent some type of gastroenteritis as well. This would be more consistent with food poisoning type. We will not start antibiotics unless there is some further indication to do so as his symptoms appear to be improving. 3. Elevated BNP. Patient likely has some high-output failure from the tachycardia. The patient has not specifically had a surface echocardiogram done, although he did have a JOSÉ MIGUEL prior to one prior cardioversion which indicated decreased left ventricular function, but no ejection fraction was mentioned and may need a repeat echocardiogram. 4. History of lung cancer status post pneumonectomy, stable. 5. History of hypertension. Continue with the metoprolol. His blood pressure has actually been somewhat low here. Limits further aggressive pushing of the beta blockade. 6. History of gastric sleeve, stable. Job ID: [id number]
[2018-06-01 18:24] LABS: Troponin I 0.012 ng/mL (< 0.028)
--- NOTE | 2018-06-01 18:51 | CON ---
DATE OF CONSULTATION: 06/01/2018 REASON FOR CONSULTATION: Atrial flutter. HISTORY OF PRESENT ILLNESS: Mr. Crowell is a very pleasant 52-year-old gentleman , who has been seen and evaluated by Dr. Rakan Howe and Dr. Dell Johansen, in the past. He recently presented with heart failure. This was acute in onset. This began yesterday. He was seen and evaluated in the emergency room, where he underwent cardioversion x2. This failed. He has been on flecainide 50 mg b.i.d. The patient has undergone atrial fibrillation ablation in 2018. This was performed in [place], [place]. He has been on Eliquis per his history without missing a single dose. PAST MEDICAL HISTORY: As above including pneumonectomy, gastric sleeve procedure, and obesity. SOCIAL HISTORY: Currently . No current tobacco or alcohol use. ALLERGIES: NONE. HOME MEDICATIONS: Include; 1. Flecainide. 2. Toprol. 3. Atorvastatin. REVIEW OF SYSTEMS: A 10-point review of systems is reviewed and as above, otherwise negative. PHYSICAL EXAMINATION: VITAL SIGNS: Blood pressure 120/70, pulse 100 to 110, and respirations 20. GENERAL: Patient is a pleasant male, who is in no acute distress. The patient appears their stated age. NEUROLOGIC: The patient is alert and oriented x3 with no focal neurologic deficits. HEENT: Sclerae without icterus. Mouth has moist mucous membranes with normal pallor. NECK: No JVD. Carotid upstroke brisk. No bruits bilaterally. LUNGS: Clear to auscultation with unlabored respirations. BACK: No scoliosis or kyphosis. CARDIAC: Regular rhythm with normal S1 and S2. No S3 or S4 noted. No significant rubs, murmurs, thrills, or gallops noted throughout the precordium. PMI is not displaced. There is no parasternal heave. Mildly tachycardic. ABDOMEN: Soft, nontender, nondistended. No peritoneal signs present. No hepatosplenomegaly. No abnormal striae. EXTREMITIES: 2+ femoral and 2+ dorsalis pedis pulses. No cyanosis, clubbing, or edema. SKIN: No gross abnormalities. PERTINENT LABORATORY DATA: Hemoglobin 17.5 and hematocrit 52. Creatinine 0.77 and total bilirubin 2.1. BNP of 607. IMPRESSION: Atrial flutter. RECOMMENDATIONS: Mr. Crowell has undergone a failed attempted cardioversion. He is currently on a flecainide 50 b.i.d. At this point, we would increase flecainide to 100 mg p.o. b.i.d. We will load him up with digoxin. We will keep n.p.o. after midnight tomorrow and consult with EP. Another option is to proceed with cardioversion, but again this was attempted last week and has had recurrence. Job ID: [id number] MTDD
[2018-06-01] MEDS: Digoxin 0.25 MG TAB PO SCH (19:57)
[2018-06-01 20:00] VITALS: BMI 32.3
[2018-06-01] MEDS: Apixaban 5 MG TAB PO SCH (20:02)
[2018-06-01] MEDS: Flecainide 50 MG TAB PO SCH (20:02)
[2018-06-01] MEDS: Rosuvastatin 10 MG TAB PO SCH (20:03)
[2018-06-01] MEDS: Acetaminophen 325 MG TAB PO PRN (20:03)
[2018-06-01] MEDS: Morphine ER 30 MG TAB PO PRN (21:58)
[2018-06-02] MEDS: Digoxin 0.25 MG TAB PO SCH ×3 (00:57→13:07)
[2018-06-02 06:57] LABS: Anion Gap 13 mmol/L (10-20); BUN (Urea Nitrogen) 12 mg/dL (8.9-20.6); Calc. Creatinine Clearance 178 mL/min (70-130); Carbon Dioxide 27 mmol/L (22-29); Chloride 103 mmol/L (98-107); Estimated GFR-MDRD Greater than 90; Glucose 77 mg/dL (70-105); Potassium 3.6 mmol/L (3.5-5.1); Sodium 139 mmol/L (136-145)
[2018-06-02] MEDS: Apixaban 5 MG TAB PO SCH ×2 (09:31→20:53)
[2018-06-02] MEDS: Flecainide 50 MG TAB PO SCH ×2 (09:31→20:52)
--- NOTE | 2018-06-02 10:45 | PDOC.CTH ---
Cardiology Progress Note - Subjective C/O palpitations at times. Funny feeling with standing. - Objective Vital Signs Temp Pulse Resp BP BP Pulse Ox 06/02/18 07:10 97.2 F L 125 H 18 103/65 98 06/02/18 06:30 125 H 06/02/18 04:04 97.7 F 120 H 19 98/66 96 06/02/18 00:57 119 H 06/01/18 23:00 97.9 F 119 H 16 93/65 97 Weight 213 lb 06/01/18 06/02/18 06/03/18 05:59 06:59 06:59 Intake Total Balance - Physical Examination General/Neuro: alert & oriented x3 Neck: no JVD present Lungs: CTA Heart: RRR Abdomen: NT/ND - Telemetry Telemetry Rhythm: AFlutter with RVR - Labs Result Diagrams: 06/01/18 11:30 06/02/18 05:12 Troponin/CKMB Troponin I 0.012 ng/mL (< 0.028) 06/01/18 17:46 - Assessment/Plan 1. AFlutter with RVR 2. Paroxysmal AF s/p PVI in [place] previously Needs RFA. EP consult placed. Will keep NPO for tomorrow.
--- NOTE | 2018-06-02 12:07 | PDOC.PN ---
- Subjective Encounter Start Date: 06/02/18 Encounter Start Time: 12:05 Mr. Crowell was seen today in follow-up of atrial flutter. He says when he walks he feels " heavy in his shoulders". - Objective Resuscitation Status - Order Detail: 06/01/18 13:46 Resuscitation Status Routine Resuscitation Status: FULL: Full Resuscitation Discussed with: Patient MAR Reviewed: Yes Vital Signs & Weight: Vital Signs (12 hours) Temp Pulse Resp BP BP Pulse Ox 06/02/18 07:10 97.2 F L 125 H 18 103/65 98 06/02/18 06:30 125 H 06/02/18 04:04 97.7 F 120 H 19 98/66 96 06/02/18 00:57 119 H Weight Weight 213 lb I&O: 06/01/18 06/02/18 06/03/18 05:59 06:59 06:59 Intake Total 240 Balance 240 Result Diagrams: 06/01/18 11:30 06/02/18 05:12 Additional Labs: Accuchecks 06/02/18 06/02/18 06/01/18 11:02 05:52 22:17 POC Glucose 83 79 86 Phys Exam - Physical Examination HEENT: PERRLA Respiratory: no rales, wheezing present + wheezing in the left side tachycardic, 2/6 faint murmur Gastrointestinal: soft, non-tender, no distention, positive bowel sounds Musculoskeletal: no edema Dx/Plan (1) Atrial flutter with rapid ventricular response Code(s): I48.92 - UNSPECIFIED ATRIAL FLUTTER Status: Acute (2) Diabetes type 2, controlled Code(s): E11.9 - TYPE 2 DIABETES MELLITUS WITHOUT COMPLICATIONS Status: Chronic (3) H/O: lung cancer Code(s): Z85.118 - PERSONAL HISTORY OF MALIGNANT NEOPLASM OF BRONCHUS AND LUNG Status: Chronic (4) Hypertension Code(s): I10 - ESSENTIAL (PRIMARY) HYPERTENSION Status: Chronic Qualifiers: Hypertension type: essential hypertension Qualified Code(s): I10 - Essential (primary) hypertension (5) Chronic anticoagulation Code(s): Z79.01 - SKILLED NURSING (CURRENT) USE OF ANTICOAGULANTS Status: Chronic - Plan * Atrial Flutter with RVR- he has been placed on a higher dose of Flecainide with no improvement in heart rate. * Await EP evaluation * Continue Eliquis for Stroke prevention * HTN- blood pressure is controlled * DM- blood glucose is stable
[2018-06-02] MEDS ORDERED: Promethazine 25 MG TAB PO PRN (13:41)
[2018-06-02] MEDS ORDERED: Promethazine HCl 25 MG/ML VIAL IM/IV PRN (13:41)
[2018-06-02] MEDS: Rosuvastatin 10 MG TAB PO SCH (20:53)
[2018-06-03] MEDS: Flecainide 50 MG TAB PO SCH ×2 (09:50→20:21)
[2018-06-03] MEDS ORDERED: Heparin 10,000 UNITS/1 ML VIAL ONE (11:54)
[2018-06-03] MEDS ORDERED: Fentanyl 100 MCG/2 ML VIAL ONE (12:22)
[2018-06-03] MEDS ORDERED: Albuterol Sulfate 1.25 MG/3 ML NEB ONE (12:46)
[2018-06-03] MEDS ORDERED: Heparin 25,000 units/D5W 0 ML ONE (13:47)
[2018-06-03] MEDS ORDERED: Phenylephrine HCL 10 MG/ML VIAL ONE ×2 (13:48)
[2018-06-03] MEDS ORDERED: Norepinephrine 4 MG/4 ML VIAL ONE ×2 (14:07→14:21)
[2018-06-03] MEDS ORDERED: DOPamine 400 MG/D5W 250 ML 250 ML ONE (14:21)
--- NOTE | 2018-06-03 14:51 | PDOC.CTH ---
Cardiology Progress Note - Subjective No complaints. No overnight events. For RFA today. - Objective Vital Signs Temp Pulse Resp BP Pulse Ox 06/03/18 08:20 98.1 F 129 H 20 104/65 98 06/03/18 05:00 98 F 122 H 12 112/68 95 Weight 213 lb 06/02/18 06/03/18 06/04/18 06:59 06:59 06:59 Intake Total 800 Output Total 575 Balance 225 - Physical Examination General/Neuro: alert & oriented x3 Neck: no JVD present Lungs: CTA Heart: RRR Abdomen: NT/ND - Telemetry Telemetry Rhythm: AFlu with rate 100-120bpm - Labs Result Diagrams: 06/01/18 11:30 06/02/18 05:12 Troponin/CKMB Troponin I 0.012 ng/mL (< 0.028) 06/01/18 17:46 - Assessment/Plan 1. AFlutter with RVR 2. Paroxysmal AF s/p PVI in [place] previously For RFA today. Already seen by EP. No changes.
[2018-06-03] MEDS ORDERED: SUGAMMADEX SODIUM 200 MG/2 ML VIAL ONE (14:53)
--- NOTE | 2018-06-03 15:56 | OP ---
DATE OF PROCEDURE: 06/03/2018 PROCEDURE PERFORMED: Electrophysiology study and radiofrequency ablation. REASON FOR PROCEDURE: Mr. Crowell is a 52-year-old man with prior history of lung resection. He has a history of atrial fibrillation and atrial flutters.He had rior ablation out of town ([place]) was performed. He is here for repeat EP study and radiofrequency ablation. He has been anticoagulated with Eliquis. DESCRIPTION OF PROCEDURE: The patient received propofol by Anesthesia specialist. After adequate level of sedation achieved, right and left femoral venous areas were prepped, draped, and anesthetized using subcutaneous lidocaine. Through the left femoral vein, an 11-Malay sheath was used to advance the ICE catheter, which was used to monitor the procedure to rule out effusion as well as help catheter guidance. Also through the left femoral vein and a sheath, a Preface sheath was inserted, and through this,initially a duo deca then a deflectible decapolar CS catheter was advanced to the CS position. Through the right side, a ThermoCool SFST catheter advanced to the right atrium. 3D map of the right atrium, His bundle, coronary sinus, and superior vena cava, inferior vena cava were delineated. The baseline measurements; baseline atrial cycle length was 270 milliseconds. The atrial flutter had typical isthmus dependent appearance with medial to lateral activation in the coronary sinus leads. Overdrive pacing in the cavotricuspid isthmus, equal tachycardia cycle lengths, whereas in the left atrial CS leads, post pacing intervals were long. This suggested right atrial flutter. The cavotricuspid isthmus ablation was performed using a total of 5 lesions, total duration 3 minutes and 14 seconds. The atrial flutter terminated during the ablation. We were able to prolong the transisthmus time from initial 40 seconds to 160 milliseconds. Cavotricuspid isthmus block was demonstrated by longest trans-isthmus time adjacent to the ablation line. Following this, dopamine was administered. The ablation line was rechecked. At the end of the case, the cardiac silhouette did not significantly change. Trivial amount of effusion was noted by ICE only. Catheter was withdrawn. Sheaths were pulled in the labels molder. The patient tolerated the procedure well. No complications noted. CONCLUSION: 1. Typical CT-isthmus dependent atirlaflutter at baseline. Succesful CTI ablation eliminated atrial flutter. 2. Normal sinus and AV damon function. 3. Distorted anatomy due to prior lung resection. PLAN: Continue flecainide and monitor for recurrent atrial arrhythmias. Resume anticoagulation. Job ID: [id number] [facility]
--- NOTE | 2018-06-03 16:35 | PDOC.PN ---
- Subjective Encounter Start Date: 06/03/18 Encounter Start Time: 16:34 Mr. Ambrosio was seen today in follow-up of Atrial Flutter. He is back from the ablation procedure. He does not have any complaints. - Objective Resuscitation Status - Order Detail: 06/01/18 13:46 Resuscitation Status Routine Resuscitation Status: FULL: Full Resuscitation Discussed with: Patient MAR Reviewed: Yes Vital Signs & Weight: Vital Signs (12 hours) Temp Pulse Resp BP BP Pulse Ox 06/03/18 15:56 98.0 F 113 H 20 119/69 98 06/03/18 08:20 98.1 F 129 H 20 104/65 98 06/03/18 05:00 98 F 122 H 12 112/68 95 Weight Weight 213 lb I&O: 06/02/18 06/03/18 06/04/18 06:59 06:59 06:59 Intake Total 800 Output Total 575 Balance 225 Result Diagrams: 06/01/18 11:30 06/02/18 05:12 Additional Labs: Accuchecks 06/03/18 06/03/18 06/02/18 10:44 05:01 20:11 POC Glucose 69 L 71 74 Phys Exam - Physical Examination Respiratory: no wheezing, no rales, no rhonchi, clear to auscultation bilateral Cardiovascular: RRR, no significant murmur, no rub Gastrointestinal: soft, non-tender, no distention, positive bowel sounds Musculoskeletal: pulses present, edema present trace pedal edema Dx/Plan (1) Atrial flutter with rapid ventricular response Code(s): I48.92 - UNSPECIFIED ATRIAL FLUTTER Status: Acute (2) H/O: lung cancer Code(s): Z85.118 - PERSONAL HISTORY OF MALIGNANT NEOPLASM OF BRONCHUS AND LUNG Status: Chronic (3) Hypertension Code(s): I10 - ESSENTIAL (PRIMARY) HYPERTENSION Status: Chronic Qualifiers: Hypertension type: essential hypertension Qualified Code(s): I10 - Essential (primary) hypertension (4) Chronic anticoagulation Code(s): Z79.01 - SECURITY OPERATIONS CENTER ANALYST (CURRENT) USE OF ANTICOAGULANTS Status: Chronic - Plan * Atrial Flutter- he is s/p ablation- he is in sinus rhythm, heart rate is a bit elevated * Continue flecainide- await further recommendations from Cardiology/EP * HTN- blood pressure is controlled * Will stop accuchecks- patient says he is not diabetic
[2018-06-03] MEDS ORDERED: PHENYLEPHRINE-NS 100 MCG/ML 10 ML SYRINGE ONE (16:56)
[2018-06-03] MEDS ORDERED: Lidocaine 1% PF 5 ML VIAL ONE (16:56)
[2018-06-03] MEDS ORDERED: Rocuronium Bromide 10 MG/ML (10ML VIAL) ONE (16:56)
[2018-06-03] MEDS ORDERED: PROPOFOL 200 MG/20 ML VIAL ONE (16:56)
[2018-06-03] MEDS ORDERED: Ondansetron PF 4 MG/2 ML Vial ONE (16:56)
--- NOTE | 2018-06-03 17:13 | PRG ---
DATE OF SERVICE: 06/03/2018 REFERRING PHYSICIAN: Dr. Indio Nuñez MD. SUBJECTIVE: I am seeing Mr. Crowell at our [facility], [place] as electrophysiology followup. His problems are: 1. History of atrial fibrillation status post ablation procedure in 11/2017, 2017 in [place]. 2. History of atrial flutter following PVI with moderate suppression flecainide. 3. CHADS VASc score , hypertension, on Eliquis therapy. 4. Gastric sleeve procedure in 11/2017. 5. History of right pneumonectomy secondary to lung cancer in 2000. 6. Prior history of obesity with over 100 pounds weight loss post gastric sleeve procedure. ALLERGIES: DIVALPROEX SODIUM. MEDICATIONS: At home included omeprazole, rosuvastatin, morphine, lubiprostone, calcium citrate, apixaban 5 mg twice a day, flecainide 1 mg twice a day, metoprolol succinate 25 mg twice a day, multivitamin, ferrous sulfate. SUBJECTIVE: Mr. Crowell was admitted with recurrent palpitations. I have just recently seen him in the ER on 05/23. At that point, he had similar atrial flutter and required cardioversion. He maintained sinus rhythm for about 10 days, but recurrent palpitations were noted and on our evaluation, he is in atrial flutter with 2:1 AV conduction despite diltiazem. He had occasional 1:1 conduction on some of the EKGs on arrival. He was also noted to have gastroenteritis, which since resolved. OBJECTIVE DATA: VITAL SIGNS: Blood pressure is 104/65, heart rate 130, respiration is 20, temperature 98.1 degrees Fahrenheit. GENERAL: Alert and oriented man, in no apparent distress. NECK: Supple. Jugular veins not distended. CHEST: Coarse and diminished lung sounds on the right side noted, prior lobectomy site. HEART: Sounds are regular. Shifted to the right. No murmur or gallop. ABDOMEN: Benign. Bowel sounds are positive. EXTREMITIES: Lower extremities without edema, clubbing, or cyanosis. DATABASE: EKGs reviewed again revealing 2:1 atrial flutter on occasion 1:1 flutter is seen. The flutter wave morphology is difficult to evaluate at this time. LABORATORY DATA: White cell count is 13.1, hemoglobin 17.5, platelet count is 312. Sodium 139, potassium 3.6, BUN is 12, creatinine 0.68. Troponin I is 0.013, 0.01, and 0.012 consecutively. The BNP on admission is 607. ASSESSMENT AND PLAN: Mr. Crowell is a pleasant 52-year-old man with prior history of atrial fibrillation, flutter, prior JOSÉ MIGUEL guided cardioversion 02/2018 moderate dose flecainide which has inc been increased at his most recent visit when I saw him in the ER. The flecainide seems to have been effective only for 10 days now he is back in atrial flutter. He is here for further therapy. Rate control is somewhat difficult with this flutter. The exact morphology of flutter was difficult to evaluate. Discussed the pros and cons about an EP study and possible ablation procedure. We detailed the difficulty due to prior lobectomy like shifting of the mediastinum and cardiac structures will be present. He understands and willing to proceed. He has been anticoagulated and we will add Eliquis this morning. Again, risks and benefits of the ablation procedure were discussed. Chance for bleeding, recurrence, stroke, damage to the surrounding tissues are discussed. Understanding to proceed. We will schedule him for an ablation, if possible today. Job ID: [id number] [facility]
[2018-06-03] MEDS: Morphine ER 30 MG TAB PO PRN (17:58)
[2018-06-03] MEDS ORDERED: Clopidogrel Bisulfate 75 MG TAB ONE (18:18)
[2018-06-03] MEDS: Rosuvastatin 10 MG TAB PO SCH (20:21)
[2018-06-03] MEDS: Apixaban 5 MG TAB PO SCH (20:59)
[2018-06-04] MEDS: Flecainide 50 MG TAB PO SCH (09:48)
[2018-06-04] MEDS: Acetaminophen 325 MG TAB PO PRN (09:53)
[2018-06-04] MEDS: Apixaban 5 MG TAB PO SCH (10:44)
--- NOTE | 2018-06-04 10:53 | PDOC.PN ---
- Subjective Encounter Start Date: 06/04/18 Encounter Start Time: 10:52 Mr. Crowell was seen today in follow-up of Atrial Flutter. He notes some dysuria , and dark urine, He also had some bleeding from the catheter site. This has improved. - Objective Resuscitation Status - Order Detail: 06/01/18 13:46 Resuscitation Status Routine Resuscitation Status: FULL: Full Resuscitation Discussed with: Patient MAR Reviewed: Yes Vital Signs & Weight: Vital Signs (12 hours) Temp Pulse Resp BP BP Pulse Ox 06/04/18 08:08 97.9 F 65 18 113/62 99 06/04/18 04:54 97.6 F 68 16 123/71 97 Weight Weight 213 lb I&O: 06/03/18 06/04/18 06/05/18 06:59 06:59 06:59 Intake Total 800 300 Output Total 575 200 Balance 225 100 Result Diagrams: 06/01/18 11:30 06/02/18 05:12 Additional Labs: Accuchecks 06/04/18 06/03/18 06:02 10:44 POC Glucose 126 H 69 L Phys Exam - Physical Examination HEENT: PERRLA Respiratory: no wheezing, no rales, no rhonchi, clear to auscultation bilateral Cardiovascular: RRR, no significant murmur, no rub Gastrointestinal: soft, non-tender, no distention, positive bowel sounds Musculoskeletal: no edema, pulses present Neurological: non-focal Dx/Plan (1) Atrial flutter with rapid ventricular response Code(s): I48.92 - UNSPECIFIED ATRIAL FLUTTER Status: Acute (2) H/O: lung cancer Code(s): Z85.118 - PERSONAL HISTORY OF MALIGNANT NEOPLASM OF BRONCHUS AND LUNG Status: Chronic (3) Hypertension Code(s): I10 - ESSENTIAL (PRIMARY) HYPERTENSION Status: Chronic Qualifiers: Hypertension type: essential hypertension Qualified Code(s): I10 - Essential (primary) hypertension (4) Chronic anticoagulation Code(s): Z79.01 - REGIONAL OPERATIONS MANAGER (CURRENT) USE OF ANTICOAGULANTS Status: Chronic - Plan * Atrial Flutter- he is post ablation- and contiues in sinus rhythm. His heart rate has improved * Hematuria- I suspect due to Johansen trauma- will check a UA * HTN- blood pressure is stable
--- NOTE | 2018-06-04 11:15 | PQF ---
DATE: 06-04-18 ATTN: DR. CORIE NAZARIO Please exercise your independent, professional judgment in responding to the clarification form. Clinical indicators are provided on the bottom of this form for your review Please check appropriate box(s): HEART FAILURE: A. TYPE: [ X ] Systolic / HFrEF [ ] Diastolic / HFpEF [ ] Combined Systolic / Diastolic B. ACUITY [ ] Acute [ X ] Acute on Chronic [ ] Chronic [ ] Other diagnosis [ ] Unable to determine In addition, please specify: Present on Admission (POA): [ X ] Yes [ ] No [ ] Unable to determine For continuity of documentation, please document condition throughout progress notes and discharge summary. Thank You. CLINICAL INDICATORS - SIGNS / SYMPTOMS / LABS ER DX: A FIB WITH RVR, ACUTE CHF EXACERBATION H&P: A FLUTTER WITH RVR. ELEVATED BNP. PATIENT LIKELY HAS SOME HIGH-OUTPUT FAILURE FROM TACHYCARDIA. MAY NEED A REPEAT ECHO. CONSULT NOTE DR. VALENTIN 06-01-18: HE RECENTLY PRESENTED WITH HEART FAILURE. THIS WAS ACUTE IN [place]. THIS BEGAN YESTERDAY. BNP: 06-01-18: 607.8 RISKS: H&P: HX OF DM 2, HTN ER: HX OF A FIB,CURRENTLY ON BLOOD THINNERS, HX HYPERLIPIDEMIA, HTN, SEIZURES, DM, COPD, GASTRIC SLEEVE TREATMENTS: ER: LASIX IV, LOPRESSOR IV, DIGOXIN IV CARDIAC MONITORING (This form is maintained as a part of the permanent medical record) 2014 [employer] All Rights Reserved MAX [email or web address] Office: [phone] [facility]
[2018-06-04 11:19] LABS: Bilirubin Moderate (Negative); Blood, Urine Large (Negative); Glucose, Urine (Dipstick) Negative (Negative); Leukocyte Negative (Negative); Nitrite Negative (Negative); Protein, Urine (Dipstick) 30 mg/dL (Neg-Trace)
[2018-06-04 11:23] LABS: Clarity CLEAR (Clear); Specific Gravity, Urine 1.028 (1.002-1.036)
[2018-06-04 11:24] LABS: RBC/HPF GREATER THAN 50-TNTC HPF (0-3)
[2018-06-04 11:25] LABS: Bacteria/HPF 1+ HPF (None Seen); Crystals/HPF 1+ STARCH HPF (Negative); Hyaline Casts/LPF NONE SEEN LPF (0-3 Hyaline); Squamous Epithelial 0-3 HPF (0-3); WBC/HPF 0-3 HPF (0-3)
--- NOTE | 2018-06-04 12:51 | PDOC.CTH ---
Cardiology Progress Note - Subjective C/O dysuria. Patient with blood in urine last night. Probable UTI. Rhythm stable in NSR post-RFA AFlutter - Objective Vital Signs Temp Pulse Resp BP BP Pulse Ox 06/04/18 12:14 98 F 61 18 102/62 95 06/04/18 08:08 97.9 F 65 18 113/62 99 06/04/18 04:54 97.6 F 68 16 123/71 97 Weight 213 lb 06/03/18 06/04/18 06/05/18 06:59 06:59 06:59 Intake Total 800 300 Output Total 575 200 Balance 225 100 - Physical Examination General/Neuro: alert & oriented x3 Neck: no JVD present Lungs: CTA Heart: RRR Abdomen: NT/ND - Telemetry Telemetry Rhythm: SR - Labs Result Diagrams: 06/01/18 11:30 06/02/18 05:12 Troponin/CKMB Troponin I 0.012 ng/mL (< 0.028) 06/01/18 17:46 - Assessment/Plan 1. Aflutter s/p RFA 06/04 2. History of paroxysmal AF s/p PVI 3. Normal coronaries by cath 2016 4. HTN 5. Obesity 6. UTI Stable CV status. EP requesting ECHO. Last was JOSÉ MIGUEL done 02/2018. Will repeat. Recent normal PET and EF on PET normal. Antibiotics per primary team.
--- NOTE | 2018-06-04 15:23 | PDOC.CTH ---
Cardiology Progress Note - Subjective EP PROGRESS NOTE: 06/04/18 Seen as follow up for atrial flutter s/p EPS and CTI ablation on 06/03/18. Minor oozing at right groin site after bed rest. No further issues this AM but has need been OOB today. c/o burning with urination and bloody urine. No heart racing or palpitations. - Objective Vital Signs Temp Pulse Resp BP BP Pulse Ox 06/04/18 12:14 98 F 61 18 102/62 95 06/04/18 08:08 97.9 F 65 18 113/62 99 06/04/18 04:54 97.6 F 68 16 123/71 97 Weight 213 lb 06/03/18 06/04/18 06/05/18 06:59 06:59 06:59 Intake Total 800 300 Output Total 575 200 Balance 225 100 - Physical Examination General/Neuro: alert & oriented x3, NAD Neck: carotid US brisk, no JVD present Lungs: CTA, unlabored respirations Heart: PMI normal, RRR Abdomen: NT/ND, soft - Telemetry Telemetry Rhythm: SR - Labs Result Diagrams: 06/01/18 11:30 06/02/18 05:12 Troponin/CKMB Troponin I 0.012 ng/mL (< 0.028) 06/01/18 17:46 - Assessment/Plan 1. Atrial flutter s/p CTI ablation 06/03/18 - maintaining SR over HS - flecainide and toprol XL -Continue toprol 25mg QD 2. CHADS2-VASC: 1 -Continue eliquis 5mg BID 3. Hypotension -known orthostasis issues 4. Abnormal intrathoracic anatomy orientation s/p pneumonectomy S/P CTI ablation for right sided flutter. Immediately following ablation he was having frequent atrial ectopy which then evolved into rate controlled atypical atrial flutter, which has not been seen clinically before. He spontaneously converted that evening around the time he received his flecainide. Continue flecainide 100mg BID (prescription sent into home pharmacy electronically by [facility] as their pharmacist has rejected prior flecainide rxs if not submitted by implementation analyst/EP). 6 week follow up requested with [facility]. May cancel echo. terminal make up operator, if flecainide fails will discuss ablation in [place] as he will possibly require steriotaxis equipment to assist with ablation given his unique anatomy following RLL pneumonectomy. OK for DC by EP.
--- NOTE | 2018-06-04 15:50 | PDOC.PN ---
- Subjective Encounter Start Date: 06/04/18 Encounter Start Time: 13:00 Mr. Crowell was seen today in follow-up of Atrial Flutter. He noted some blood in his urine, and burning. He noted this after the Davidson catheter was placed. - Objective Resuscitation Status - Order Detail: 06/01/18 13:46 Resuscitation Status Routine Resuscitation Status: FULL: Full Resuscitation Discussed with: Patient MAR Reviewed: Yes Vital Signs & Weight: Vital Signs (12 hours) Temp Pulse Resp BP BP Pulse Ox 06/04/18 12:14 98 F 61 18 102/62 95 06/04/18 08:08 97.9 F 65 18 113/62 99 06/04/18 04:54 97.6 F 68 16 123/71 97 Weight Weight 213 lb I&O: 06/03/18 06/04/18 06/05/18 06:59 06:59 06:59 Intake Total 800 300 Output Total 575 200 Balance 225 100 Result Diagrams: 06/01/18 11:30 06/02/18 05:12 Additional Labs: Accuchecks 06/04/18 06:02 POC Glucose 126 H Phys Exam - Physical Examination HEENT: PERRLA Respiratory: no wheezing, no rales, no rhonchi, clear to auscultation bilateral Cardiovascular: RRR, no significant murmur, no rub Gastrointestinal: soft, non-tender, no distention, positive bowel sounds Musculoskeletal: no edema, pulses present Dx/Plan (1) Atrial flutter with rapid ventricular response Code(s): I48.92 - UNSPECIFIED ATRIAL FLUTTER Status: Acute (2) H/O: lung cancer Code(s): Z85.118 - PERSONAL HISTORY OF MALIGNANT NEOPLASM OF BRONCHUS AND LUNG Status: Chronic (3) Hypertension Code(s): I10 - ESSENTIAL (PRIMARY) HYPERTENSION Status: Chronic Qualifiers: Hypertension type: essential hypertension Qualified Code(s): I10 - Essential (primary) hypertension (4) Chronic anticoagulation Code(s): Z79.01 - ASSISTED (CURRENT) USE OF ANTICOAGULANTS Status: Chronic (5) UTI (urinary tract infection) Status: Acute - Plan * Atrial Flutter- he is now in sinus after ablation * Hematuria- likely from davidson trauma- he did have a few bacteria- so will treat with a short course of Bastrim * Disposition as per Cardiology/EP.
[2018-06-04 17:45] VITALS: BP 108/64; TEMP 97.9
--- NOTE | 2018-06-04 18:12 | EKG ---
Test Reason : Blood Pressure : / mmHG Vent. Rate : 118 BPM Atrial Rate : 118 BPM P-R Int : 000 ms QRS Dur : 110 ms QT Int : 366 ms P-R-T Axes : 091 044 057 degrees QTc Int : 513 ms Sinus tachycardia with 1st degree A-V block pac's Nonspecific ST-T changes When compared with ECG of 01-JUN-2018 11:46, (Unconfirmed) Sinus rhythm has replaced Atrial fibrillation Criteria for Septal infarct are no longer Present ST no longer depressed in Inferior leads ST no longer depressed in Anterior leads Confirmed by DR. Nicole WONG (3) on 06/04/2018 6:12:38 PM Referred By: ИРИНА Confirmed By:DR. Nicole WONG
[2018-06-04] MEDS ORDERED: Sulfameth/Trimethoprim DS 800-160mg TAB PO SCH (21:00)
--- NOTE | 2018-06-05 04:43 | DIS ---
DATE OF ADMISSION: 06/01/2018 DATE OF DISCHARGE: 06/04/2018 DISCHARGE DISPOSITION: Home. PRIMARY DISCHARGE DIAGNOSES: 1. Atrial flutter with rapid ventricular response. 2. History of lung cancer, status post right pneumonectomy. 3. Hypertension. 4. Urinary tract infection. DISCHARGE MEDICATIONS: Include: 1. Bactrim DS 1 tablet twice a day. 2. Flecainide was increased to 100 mg twice a day. 3. Continue metoprolol-XL 25 mg twice daily. 4. Eliquis 5 mg twice a day. 5. Crestor 10 mg daily. 6. Omeprazole 40 mg daily. 7. Multivitamin one tablet 3 times a day. 8. MS Contin 30 mg q.8. 9. Amitiza 24 mcg twice a day. 10. Iron sulfate 325 mg daily. 11. Calcium citrate 600 mg twice daily. PROCEDURES DONE DURING THE ADMISSION: The patient had a cardiac ablation. CODE STATUS: Full code. ALLERGIES: DIVALPROEX. HOSPITAL COURSE: Mr. Crowell is a pleasant 52-year-old gentleman, who was admitted to the hospital after experiencing palpitations. He has a known history of atrial fibrillation, as well as flutter. He has had a cardioversion in the past, as well as an attempted ablation with unfortunate recurrent atrial flutter. He was admitted and started on IV Cardizem with some improvement in his heart rate. He was seen by both Cardiology and Electrophysiology. He underwent radiofrequency ablation. With the taoism of sinus rhythm, the dose of flecainide was increased from 50 to 100 mg twice daily. He is subsequently being discharged home in stable condition to have close outpatient followup with his primary care physician and also with Dr. Johansen as instructed. Job ID: [id number]
--- NOTE | 2018-06-05 18:38 | EKG ---
Test Reason : Blood Pressure : / mmHG Vent. Rate : 061 BPM Atrial Rate : 061 BPM P-R Int : 168 ms QRS Dur : 116 ms QT Int : 432 ms P-R-T Axes : 049 004 030 degrees QTc Int : 434 ms Normal sinus rhythm Normal ECG When compared with ECG of 03-JUN-2018 15:35, ND interval has increased Vent. rate has decreased BY [address] Nicole WONG (3) on 06/05/2018 6:38:12 PM Referred By: ARGELIA Confirmed By:DR. Nicole WONG
== END 2018-06-04 17:46 | disposition home or self-care (01) | DRG 273 ==
LOC: ERS 11:23 → ERHOLD 13:28 → 2NO 15:33
PROVIDERS: ADMIT Internal Medicine; ATTEND Internal Medicine
PROC: 02583ZZ Destruction of Conduction Mechanism, Percutaneous Approach (ICD-10-PCS; principal; 2018-06-03)
PROC: 4A023FZ Measurement of Cardiac Rhythm, Percutaneous Approach (ICD-10-PCS; 2018-06-03)
PROC: 4A0234Z Measurement of Cardiac Electrical Activity, Percutaneous Approach (ICD-10-PCS; 2018-06-03)
DX: I48.92 Unspecified atrial flutter (principal); I50.23 Acute on chronic systolic (congestive) heart failure; N39.0 Urinary tract infection, site not specified; I11.0 Hypertensive heart disease with heart failure; K52.9 Noninfective gastroenteritis and colitis, unspecified; E78.5 Hyperlipidemia, unspecified; I95.9 Hypotension, unspecified; I48.0 Paroxysmal atrial fibrillation; R31.9 Hematuria, unspecified; Z85.118 Personal history of other malignant neoplasm of bronchus and lung; Z88.8 Allergy status to other drugs, medicaments and biological substances; Z79.01 Long term (current) use of anticoagulants; Z79.899 Other long term (current) drug therapy; Z90.2 Acquired absence of lung [part of]; Z98.84 Bariatric surgery status
CPT/HCPCS: 36415; 36416; 71045; 76942; 80048; 80053; 80306; 80307; 81001; 81003; 82550; 83690; 83880; 84484; 85025; 85610; 85730; 93005; 93010; 93613; 93621; 93623; 93653; 93662; 96374; 96375; C1730; C1731; C1732; C1759; C1769; J1160; J1265; J1644; J1940; J2001; J2370; J2405; J2704; J3010; J3475; Q0169

== ENCOUNTER 2018-09-19 10:41 | Emergency (ER) | payer MEDICARE, MEDICAID ==
[2018-09-19] MEDS ORDERED: Dexamethasone 4 MG TAB ONE (12:00)
[2018-09-19 12:10] LABS: #Basophils 0.1 thou/uL (0.0-0.2); #Eosinphils 0.1 thou/uL (0.0-0.7); #Lymphocytes 2.7 thou/uL (1.20-3.40); #Monocytes 0.8 thou/uL (0.11-0.59); #Neutrophils 4.9 thou/uL (1.40-6.50); %Basophils 1.3 % (0.0-1.0); %Eosinophils 1.4 % (0.0-10.0); %Lymphocytes 31.2 % (21.0-51.0); %Monocytes 9.5 % (0.0-10.0); %Neutrophils 56.6 % (42.0-75.0); Hemoglobin 15.6 g/dL (14.0-18.0); Mean Corpuscular HGB CONC 33.3 g/dL (32.0-36.0); Mean Corpuscular Hemoglobin 29.7 pg (27.0-31.0); Mean Corpuscular Volume 88.9 fL (78.0-98.0); Mean Platelet Volume 6.4 fL (7.4-10.4); Platelet Count 368 thou/uL (130-400); RBC Distribution Width 11.9 % (11.5-14.5); Red Blood Cell (RBC) Count 5.25 mill/uL (4.70-6.10); White Blood Cell (WBC) Count 8.7 thou/uL (4.8-10.8)
[2018-09-19 12:31] LABS: ALT (SGPT) 17 U/L (8-55); AST (SGOT) 21 U/L (5-34); Albumin 4.3 g/dL (3.5-5.0); Alkaline Phosphatase 91 U/L (40-150); Anion Gap 13 mmol/L (10-20); BUN (Urea Nitrogen) 15 mg/dL (8.9-20.6); Bilirubin, Total 1.1 mg/dL (0.2-1.2); Calc. Creatinine Clearance 0 mL/min (70-130); Calcium 9.8 mg/dL (7.8-10.44); Carbon Dioxide 26 mmol/L (22-29); Chloride 101 mmol/L (98-107); Estimated GFR-MDRD Greater than 90; Globulin 3.4 g/dL (2.4-3.5); Glucose 93 mg/dL (70-105); Potassium 4.2 mmol/L (3.5-5.1); Protein, Total 7.7 g/dL (6.0-8.3); Sodium 136 mmol/L (136-145)
--- NOTE | 2018-09-19 12:40 | RAD ---
PA AND LATERAL CHEST: HISTORY: Cough. COMPARISON: 07/04/2018 exam. FINDINGS: Complete opacification of the right hemithorax with right-sided pneumonectomy change again noted. Th e left lung remains clear. IMPRESSION: Stable exam. POS: TPC
--- NOTE | 2018-09-19 15:17 | CT ---
CT ANGIO CHEST WITH 3D RENDERING: HISTORY: Dyspnea, cough, wheezing, history of prior right pneumonectomy. FINDINGS: There is evidence for total right pneumonectomy with marked shift of heart and mediastinum to the rig ht and elevation of the right hemidiaphragm. There are some patchy somewhat nodular alveolar and shante und-glass opacity changes in the left lower lobe, evidence for pneumonia. No CT evidence for acute p ulmonary embolism. Postoperative changes in the region of the stomach. Status post cholecystectomy. IMPRESSION: 1. Patchy alveolar nodular and ground-glass opacity changes in the left lower lobe, evidence for pne umonia. 2. Status post right pneumonectomy. 3. No convincing CT evidence for acute pulmonary embolism. 4. Postoperative changes involving the stomach and status post cholecystectomy. POS: ARUN
== END 2018-09-19 15:00 | disposition home or self-care (01) ==
LOC: ERS 10:41
DX: J18.9 Pneumonia, unspecified organism (principal); E78.5 Hyperlipidemia, unspecified; I10 Essential (primary) hypertension; E11.9 Type 2 diabetes mellitus without complications; Z79.899 Other long term (current) drug therapy; Z79.01 Long term (current) use of anticoagulants
CPT/HCPCS: 36415; 71046; 71275; 80053; 85025; 85379; 94640; J7620; J8540

== ENCOUNTER 2018-09-25 11:36 | Day surgery (SDC) | payer MEDICARE, MEDICAID ==
[2018-09-24 12:48] VITALS: BMI 30.4
[2018-09-25 12:25] LABS: INR-International Normal Ratio 1.1; PTT 31.7 SEC (22.9-36.1); Prothrombin Time 13.7 SEC (12.0-14.7)
[2018-09-25] MEDS ORDERED: PROPOFOL 20 ML ONE (12:27)
--- NOTE | 2018-09-25 13:07 | OP ---
DATE OF PROCEDURE: 09/25/2018 PROCEDURE PERFORMED: Electrical cardioversion. REFERRING PHYSICIAN: Rakan Howe MD REASON FOR PROCEDURE: Mr. Crowell is a 52-year-old man with prior history of atrial fibrillation and flutter, recent redo ablation on June 03, 2018, as well as September 04. He had recurrent atrial arrhythmia, atypical atrial flutter and he is here for cardioversion. He has been well anticoagulated with Eliquis without fail and he is on 100 mg twice a day flecainide. DESCRIPTION OF PROCEDURE: The patient received propofol by Anesthesia specialist. After adequate level of sedation achieved, a 70-joule shock failed to cardiovert him back to sinus rhythm, but a followup 200-joule shock achieved sinus rhythm. CONCLUSION: Successful cardioversion. PLAN: Continue Eliquis and flecainide. Routine followup in the office. Job ID: [id number]
== END 2018-09-25 13:32 | disposition home or self-care (01) ==
LOC: CCL 11:36
PROVIDERS: ATTEND Internal Medicine Cardiovascular Disease
PROC: 5A2204Z Restoration of Cardiac Rhythm, Single (ICD-10-PCS; principal; 2018-09-25)
DX: I48.91 Unspecified atrial fibrillation (principal); I48.4 Atypical atrial flutter; I10 Essential (primary) hypertension; E11.9 Type 2 diabetes mellitus without complications; J44.9 Chronic obstructive pulmonary disease, unspecified; E78.5 Hyperlipidemia, unspecified; G89.29 Other chronic pain; M54.9 Dorsalgia, unspecified; Z79.01 Long term (current) use of anticoagulants; Z79.899 Other long term (current) drug therapy
CPT/HCPCS: 85610; 85730; 92960; 93005; 93010; J2704

== ENCOUNTER 2020-12-16 08:26 | Outpatient (CLI) | payer MEDICARE, MEDICAID | END 2020-12-16 08:27 | disposition home or self-care (01) | LOC: BICRAD 08:26 | PROVIDERS: ATTEND Nurse Practitioner Family | DX: M25.551 Pain in right hip (principal); M16.11 Unilateral primary osteoarthritis, right hip ==